=== PATIENT | female | born 1930 | race Hispanic/Latino ===

== ENCOUNTER 2018-07-05 12:59 | Inpatient (IN) | payer MEDICARE, OTHER ==
[2018-07-05 15:09] LABS: VENOUS BLOOD GAS BASE EXCESS -4.5 mmol/L (0.0-2.0); VENOUS BLOOD GAS PO2 31 mm/Hg (30-55); VENOUS BLOOD PH 7.33 (7.32-7.43)
--- NOTE | 2018-07-05 15:10 | ED PDOC ---
Arrival/HPI - General Chief Complaint: Weakness/Neurological Deficit Time Seen by Provider: 07/05/18 13:44 Historian: Patient, Family - History of Present Illness Narrative History of Present Illness (Text): 07/05/18 14:08 87 year old female, whose past medical history includes diabetes, parathyroidectomy (removal of goiter), and family history of Pancreatic cancer noted, who presents to the emergency department complaining of thirst and generalized weakness for the psat 2 weeks. Patient reports she went to see Dr. Palafox on 06/21/2018 for evaluation of her constipation for 2 weeks prior to her visit there. Son at bedside states pt was put onto medication for her constipation, with significant relief. Patient states she had very shallow breathing last night. Pt states Dr. Palafox prescribed her Magnesium Nitrate. Patient denies ever doing enema. Patient states she weighed 166 pounds on 06/04/2018, and when she was checked again 2 weeks later she had gained 20 pounds. Pt notes her constipation is gone. Patient notes abdominal bloating, fatigue, and vomiting. Patient notes her last bowel movement was yesterday, due to the medication. Patient notes she did get her flu shot. Patient denies any fevers, chest pain, nausea, constipation, back pain, neck pain, urinary symptoms, headache, dizziness, or any other complaint. PMD: Dr. Palafox [facility] at bedside notes that patient can only take Aspirin since she is allergic to all medications due to result of vomiting. Time/Duration: < week (Pt notes onset as 2 weeks ago) Symptom Onset: Sudden Symptom Course: Unchanged Activities at Onset: Light Past Medical History - Provider Review Nursing Documentation Reviewed: Yes - Endocrine/Metabolic Hx Diabetes Mellitus Type 1: Yes Hx Hypothyroidism: Yes - Psychiatric Hx Substance Use: No - Surgical History Hx Parathyroidectomy: Yes Other/Comment: removal of goiter - Anesthesia Hx Anesthesia: Yes Hx Anesthesia Reactions: No Hx Malignant Hyperthermia: No Family/Social History - Physician Review Nursing Documentation Reviewed: Yes Family/Social History: Other (Family history of Pancreatic cancer noted) Smoking Status: Never Smoked Hx Alcohol Use: No Hx Substance Use: No Allergies/Home Meds Allergies/Adverse Reactions: Allergies acetaminophen [From Tylenol] Allergy (Verified 07/05/18 13:49) ANAPHYLAXIS hydromorphone [From Dilaudid] Allergy (Verified 07/05/18 13:48) ANAPHYLAXIS morphine Allergy (Verified 07/05/18 13:48) NAUSEA NSAIDS (Non-Steroidal Anti-Inflamma Allergy (Verified 07/05/18 13:48) ANAPHYLAXIS Home Medications: Home Meds Medication Instructions Recorded Confirmed SITagliptin [Januvia] 25 mg PO DAILY 07/06/18 07/06/18 Thyroid [[place] Thyroid] 60 mg PO DAILY 07/06/18 07/06/18 Review of Systems - Physician Review All systems were reviewed & negative as marked: Yes - Review of Systems Constitutional: Fatigue, Other (Patient notes thirst). absent: Normal, Fevers Cardiovascular: Normal. absent: Chest Pain Gastrointestinal: Vomiting, Other (Patient notes abdominal bloating ). absent: Normal, Constipation, Nausea Genitourinary Female: Normal. absent: Urine Output Changes Musculoskeletal: Normal. absent: Back Pain, Neck Pain Neurological: Normal. absent: Headache, Dizziness Physical Exam Vital Signs Reviewed: Yes Vital Signs Temp Pulse Resp BP Pulse Ox 07/05/18 14:27 98.1 F 125 H 18 134/60 96 07/05/18 13:01 97.4 F L 124 H 18 119/58 L 95 Temperature: Afebrile Blood Pressure: Hypertensive Pulse: Tachycardic Respiratory Rate: Normal Appearance: Positive for: Well-Appearing, Non-Toxic, Comfortable Pain Distress: None Mental Status: Positive for: Alert and Oriented X 3 - Systems Exam Head: Present: Atraumatic, Normocephalic Pupils: Present: PERRL Extroacular Muscles: Present: EOMI Conjunctiva: Present: Normal Mouth: Present: Dry Neck: Present: Normal Range of Motion Respiratory/Chest: Present: Clear to Auscultation, Good Air Exchange, Decreased Breath Sounds (decreased breath sounds bilaterally, body habitus ). No: Wheezes Cardiovascular: Present: Tachycardic Abdomen: Present: Distention (distended abdomen). No: Tenderness, Peritoneal Signs Back: Present: Normal Inspection Upper Extremity: Present: Normal Inspection. No: Cyanosis, Edema Lower Extremity: Present: Edema (+1 pitting edema b/l) Neurological: Present: GCS=15, Speech Normal Skin: Present: Warm, Dry, Normal Color. No: Rashes Psychiatric: Present: Alert, Oriented x 3, Normal Insight, Normal Concentration Medical Decision Making ED Course and Treatment: 07/05/18 14:08 Impression: 87 year old female who presents to the emergency department for thirst and gener alized weakness for the past 2 weeks. Differential Diagnosis included but are not limited to: --CHF (new onset) --PNA --Arrhythmia Plan: -- Labs --CXR --IVF --Rocephin --Azithromycin --Lasix -- CT of Abdomen/Pelvis (IV contrast only) -- EKG -- X-Ray of chest -- Urine culture -- Influenza A B -- Urinalysis -- Reassess and disposition Progress Notes: 07/05/18 15:42 VBG shows elevated lactate of 5.2. HR noted to be sinus tachycardia to 135 with evidence of P waves seen on monitor strip. CXR shows vascular congestion, cardiomegaly as well as consolidation worrisome for PNA. Labs pending. 07/06/18 16:15 Labs reviewed with leukocytosis of 11, elevated potassium of 5.2(with no EKG changes) and hyponatremia. BNP elevated. HR sinus tachycardia to 120s despite fluids. Patient will be started on antibiotics for CAP as well as call placed to Dr. Palafox(PCP). 07/06/18 16:[address] Palafox who accepts patient onto her service. - Lab Interpretations Lab Results: 07/05/18 14:50 07/05/18 14:50 Lab Results 07/05/18 15:25: Influenza Typ A,B (EIA) Negative for flu a/b 07/05/18 15:00: pO2 31, VBG pH 7.33, VBG pCO2 40.0, VBG HCO3 21.1, VBG Total CO2 22.3, VBG O2 Sat (Calc) 61.3, VBG Base Excess -4.5 L, VBG Potassium 5.0, Glucose 114 H, Lactate 5.0 H*, FiO2 21.0, Crit Value Called To Fabiola dupree, Crit Value Called By Js, Blood Gas Notified Time 1510, Sodium 130.0 L, Chloride 98.0, Venous Blood Potassium 5.0 07/05/18 14:50: PT 31.3 H, INR 2.82, APTT 32.2 07/05/18 14:50: Sodium 133, Potassium 5.2 H, Chloride 99, Carbon Dioxide 22, Anion Gap 17, BUN 25 H, Creatinine 0.8, Est GFR ( Amer) > 60, Est GFR (Non-Af Amer) > 60, Random Glucose 116 H, Calcium 9.4, Magnesium 2.0, Total Bilirubin 6.6 H, AST 524 H, ALT 359 H, Alkaline Phosphatase 234 H, Troponin I 0.02, NT-Pro-B Natriuret Pep 1150 H, Total Protein 7.0, Albumin 3.6, Globulin 3.4, Albumin/Globulin Ratio 1.1, Lipase 318 H 07/05/18 14:50: WBC 11.3 H, RBC 4.86, Hgb 11.7 L, Hct 38.7, MCV 79.6 L, MCH 24.1 L, MCHC 30.2 L, RDW 15.7 H, Plt Count 328, MPV 9.8, Neut % (Auto) 74.2 H, Lymph % (Auto) 12.6 L, [place] % (Auto) 13.2 H, Eos % (Auto) 0.0 L, Baso % (Auto) 0.0, Lymph # (Auto) 1.4, [place] # (Auto) 1.5 H, Eos # (Auto) 0.0, Baso # (Auto) 0.00, Absolute Neuts (auto) 8.35 H I have reviewed the lab results: Yes - RAD Interpretation Narrative RAD Interpretations (Text): X-Ray of chest reviewed by radiologist, shows: Dictated By: Ron Sherwood Dictated Date/Time: 07/05/18 15:30 Impression: Poor inspiration with low lung volumes, crowded bronchovascular markings and mild bibasilar atelectasis. Central pulmonary vasculature is also increased possibly due to low lung volumes however mild chronic compensated pulmonary venous congestive changes not excluded. Clinical correlation recommend ed. Radiology Orders: 07/05/18 14:14 CHEST PORTABLE [RAD] Stat 07/05/18 14:41 ABDOMEN & PELVIS [ABD & PELVIS IV CONTRAST ONLY] [CT] Stat Dipper Operator: Radiologist - EKG Interpretation EKG Interpretation (Text): 07/05/18 14:06:12 EKG: Ordered, reviewed, and independently interpreted the EKG. Rate : 133 BPM Rhythm : Sinus Tachycardia. Interpretation : Low voltage. Visible P waves intermittently. No peaked T-waves. Interpreted by ED Physician: Yes Type: 12 lead EKG - Scribe Statement The provider has reviewed the documentation as recorded by the Scribe Thelma Paulson All medical record entries made by the Scribe were at my direction and personally dictated by me. I have reviewed the chart and agree that the record accurately reflects my personal performance of the history, physical exam, medical decision making, and the department course for this patient. I have also personally directed, reviewed, and agree with the discharge instructions and disposition. Disposition/Present on Arrival - Present on Arrival Any Indicators Present on Arrival: No History of DVT/PE: No History of Uncontrolled Diabetes: No Urinary Catheter: No History of Decub. Ulcer: No History Surgical Site Infection Following: None - Disposition Have Diagnosis and Disposition been Completed?: Yes Diagnosis: CHF (congestive heart failure), Atrial arrhythmia Disposition: HOSPITALIZED Disposition Time: 16:13 Patient Plan: Admission Patient Problems: Current Active Problems Problem Status Onset Atrial arrhythmia Acute CHF (congestive heart failure) Acute Condition: GUARDED
[2018-07-05] MEDS ORDERED: Sodium Chloride 0.9% 1,000 ML IV STA (15:15)
[2018-07-05 15:25] LABS: HEMOGLOBIN 11.7 g/dL (12.0-16.0); LYMPH # 1.4 (1.2-3.4); LYMPH % 12.6 % (22.0-35.0); MEAN CELL VOLUME 79.6 fl (80.0-105.0); MEAN CORPUSCULAR HEMOGLOBIN 24.1 pg (25.0-35.0); MEAN CORPUSCULAR HGB CONC 30.2 g/dl (31.0-37.0); MEAN PLATELET VOLUME 9.8 fl (7.0-11.0); MONO # 1.5 (0.1-0.6); MONO % 13.2 % (1.0-6.0); RBC 4.86 10^6/uL (3.5-6.1); RED CELL DISTRIBUTION WIDTH 15.7 % (11.5-14.5); WHITE BLOOD COUNT 11.3 10^3/uL (4.5-11.0)
[2018-07-05 15:31] LABS: ALB/GLOB RATIO 1.1 (1.1-1.8); ALBUMIN 3.6 g/dL (3.0-4.8); ALT/SGPT 359 U/L (7-56); AST/SGOT 524 U/L (14-36); BLOOD UREA NITROGEN 25 mg/dL (7-21); CALCIUM 9.4 mg/dL (8.4-10.5); GFR NON-AFRICAN AMERICAN > 60; LIPASE 318 U/L (23-300)
--- NOTE | 2018-07-05 15:33 | RAD ---
Date of service: 07/05/2018 HISTORY: weakness COMPARISON: No prior. FINDINGS: LUNGS: Poor inspiration with low lung volumes, crowded bronchovascular markings and mild bibasilar atelectasis. Central pulmonary vasculature is also increased possibly due to low lung volumes however mild chronic compensated pulmonary venous congestive changes not excluded. Clinical correlation recommended. PLEURA: No significant pleural effusion identified, no pneumothorax apparent. CARDIOVASCULAR: Mild moderate aortic atherosclerotic calcification present. Marked cardiomegaly. OSSEOUS STRUCTURES: No significant abnormalities. VISUALIZED UPPER ABDOMEN: Normal. OTHER FINDINGS: None. IMPRESSION: Poor inspiration with low lung volumes, crowded bronchovascular markings and mild bibasilar atelectasis. Central pulmonary vasculature is also increased possibly due to low lung volumes however mild chronic compensated pulmonary venous congestive changes not excluded. Clinical correlation recommended.
[2018-07-05 15:38] LABS: INR 2.82; PARTIAL THROMBOPLASTIN TIME 32.2 Seconds (26.9-38.3); PROTHROMBIN TIME 31.3 SECONDS (9.4-12.5)
[2018-07-05 15:43] LABS: B-TYPE NATRIURETIC PEPTIDE 1150 pg/mL (0-450); TROPONIN I 0.02 ng/mL
[2018-07-05] MEDS ORDERED: Albuterol 0.083% Inhal Sol (2.5 mg/3 mL) UD INH STA (15:49)
[2018-07-05] MEDS ORDERED: Dextrose 25% Inj (10ml) IV ONE (15:49)
[2018-07-05] MEDS ORDERED: Sodium Bicarbonate (8.4%) 50 Meq Syringe IVP ONE ×2 (15:49→17:15)
[2018-07-05] MEDS ORDERED: cefTRIAXone 1 gm 1 GM/100 ML BAG IVPB STA (15:50)
[2018-07-05] MEDS ORDERED: Azithromycin 500MG/NS 250ml 500 MG/250 ML BAG IVPB STA (15:50)
--- NOTE | 2018-07-05 16:35 | CARD ---
APPROVED REPORT Date of service: 07/05/2018 EKG Measurement Heart [id number] <Conclusion> A fib RVR Low voltage QRS Septal infarct, age undetermined Abnormal ECG
[2018-07-05] MEDS ORDERED: Iohexol 350 MG/100 ML VIAL ONE (16:46)
--- NOTE | 2018-07-05 17:57 | CT ---
Date of service: 07/05/2018 PROCEDURE: CT Abdomen and Pelvis with contrast HISTORY: constipation x 2 weeks r/o obstruction COMPARISON: None available. TECHNIQUE: Contrast dose: 100 mL Omnipaque 350 Radiation dose: Total exam DLP = 1017.56 mGy-cm. This CT exam was performed using one or more of the following dose reduction techniques: Automated exposure control, adjustment of the mA and/or kV according to patient size, and/or use of iterative reconstruction technique. FINDINGS: LOWER THORAX: Moderate bilateral pleural effusions. Bibasilar atelectasis. No visible pneumothorax. Partially imaged cardiomegaly. LIVER: Hypoattenuation of the liver compatible with hepatic steatosis. GALLBLADDER AND BILE DUCTS: Cholecystectomy. PANCREAS: Atrophic. SPLEEN: Unremarkable. ADRENALS: Unremarkable. KIDNEYS AND URETERS: Bilateral diminutive kidneys. The kidneys enhance symmetrically. No hydronephrosis or obstructing calculus identified. 1.2 cm left renal cyst. VASCULATURE: No aortic aneurysm. Dense aortic atherosclerotic calcifications/mural plaque. BOWEL: Stomach is nondistended. Lack of oral contrast limits evaluation for bowel pathology. Bowel loops appear within normal limits of caliber without evidence of obstruction. APPENDIX: Appendix is not identified PERITONEUM: Small abdominal and pelvic ascites. No definite free air. LYMPH NODES: No bulky adenopathy identified. BLADDER: Thick-walled under distended urinary bladder with associated inflammatory changes; correlate clinically for cystitis. REPRODUCTIVE: Diminutive/atrophic uterus. 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 Dilated left gonadal vein. BONES: Osseous demineralization. Multilevel degenerative changes. Scoliosis. OTHER FINDINGS: None. IMPRESSION: Diminutive/atrophic uterus. 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 Dilated left gonadal vein. Thick-walled under distended urinary bladder with associated inflammatory changes; correlate clinically for cystitis. Small abdominal and pelvic ascites. Moderate bilateral pleural effusions. Bibasilar atelectasis. Partially imaged cardiomegaly. Additional findings as above.
[2018-07-05] MEDS ORDERED: Albuterol-Ipratrop 3 mg / 0.5 (3 ml) UD IH PRN (19:26)
[2018-07-05 19:41] LABS: VENOUS BLOOD GAS BASE EXCESS -7.3 mmol/L (0.0-2.0); VENOUS BLOOD GAS PO2 36 mm/Hg (30-55); VENOUS BLOOD PH 7.27 (7.32-7.43)
[2018-07-05] MEDS: Albuterol-Ipratrop 3 mg / 0.5 (3 ml) UD IH SCH (20:18)
--- NOTE | 2018-07-05 21:57 | CP.PCM.PN ---
<JacquesJaron - Last Filed: 07/05/18 21:50> Subjective - Date & Time of Evaluation Date of Evaluation: 07/05/18 Time of Evaluation: 21:50 - Subjective Subjective: PGY1 Note for House Doc S - Paged about afib with RVR (HR 133) on 12-lead ekg (Afib confirmed by me) O - Repeat vital signs: HR 120, Temp 98.4, BP 134/70, RR 20, SaO2 98% room air - Patient does not have any chest pain or sob. Not diaphoretic on exam, she appears stable. - She does not endorse any abnormal hx of afib or rhythm abnormalities. A - new onset afib? (no prior records) P - D/w Dr. Palafox that patient will be started on lovenox 1 mg/kg sc BID, cardizem 5mg IVP - trend trops - also ordered TSH - cardio already on consult - Given leukocytosis, tachycardia, and trending up lactate (5 to 6), blood cx x2 ordered and procal level - will continue to monitor patient Objective - Vital Signs/Intake and Output Vital Signs (last 24 hours): Temp Pulse Resp BP Pulse Ox 98.1 F 125 H 18 137/100 H 96 07/05/18 14:27 07/05/18 14:27 07/05/18 14:27 07/05/18 16:30 07/05/18 14:27 - Medications Medications: Current Medications Acetaminophen (Tylenol 325mg Tab) 650 mg PO Q6H PRN PRN Reason: Fever >100.4 F Albuterol/Ipratropium (Duoneb 3 Mg/0.5 Mg (3 Ml) Ud) 3 ml IH Q2H PRN PRN Reason: Shortness of Breath Albuterol/Ipratropium (Duoneb 3 Mg/0.5 Mg (3 Ml) Ud) 3 ml IH [id number] AMADOU Last Admin: 07/05/18 20:18 Dose: 3 ml Enoxaparin Sodium (Lovenox) 80 mg SC Q12H AMADOU; Protocol Furosemide (Lasix) 40 mg IVP DAILY AMADOU Ceftriaxone Sodium (Rocephin 1 Gram Ivpb) 1 gm in 100 mls @ 100 mls/hr IVPB DAILY AMADOU; Protocol Azithromycin (Zithromax 500mg In Ns) 500 mg in 250 mls @ 167 mls/hr IVPB DAILY AMADOU; Protocol Ondansetron HCl (Zofran Inj) 4 mg IVP Q6H PRN PRN Reason: Nausea/Vomiting Pantoprazole Sodium (Protonix Ec Tab) 40 mg PO 0630 AMADOU - Labs Labs: 07/05/18 14:50 07/05/18 14:50 PT 31.3 SECONDS (9.4-12.5) H 07/05/18 14:50 INR 2.82 07/05/18 14:50 APTT 32.2 Seconds (26.9-38.3) 07/05/18 14:50 <Andrew Conn - Last Filed: 07/05/18 22:43> Objective - Vital Signs/Intake and Output Vital Signs (last 24 hours): Temp Pulse Resp BP Pulse Ox 98.1 F 125 H 18 137/100 H 96 07/05/18 14:27 07/05/18 14:27 07/05/18 14:27 07/05/18 16:30 07/05/18 14:27 - Medications Medications: Current Medications Acetaminophen (Tylenol 325mg Tab) 650 mg PO Q6H PRN PRN Reason: Fever >100.4 F Albuterol/Ipratropium (Duoneb 3 Mg/0.5 Mg (3 Ml) Ud) 3 ml IH Q2H PRN PRN Reason: Shortness of Breath Albuterol/Ipratropium (Duoneb 3 Mg/0.5 Mg (3 Ml) Ud) 3 ml IH [id number] AMADOU Last Admin: 07/05/18 20:18 Dose: 3 ml Enoxaparin Sodium (Lovenox) 80 mg SC Q12H AMADOU; Protocol Furosemide (Lasix) 40 mg IVP DAILY AMADOU Ceftriaxone Sodium (Rocephin 1 Gram Ivpb) 1 gm in 100 mls @ 100 mls/hr IVPB DAILY AMADOU; Protocol Azithromycin (Zithromax 500mg In Ns) 500 mg in 250 mls @ 167 mls/hr IVPB DAILY AMADOU; Protocol Ondansetron HCl (Zofran Inj) 4 mg IVP Q6H PRN PRN Reason: Nausea/Vomiting Pantoprazole Sodium (Protonix Ec Tab) 40 mg PO 0630 AMADOU - Labs Labs: 07/05/18 14:50 07/05/18 14:50 PT 31.3 SECONDS (9.4-12.5) H 07/05/18 14:50 INR 2.82 07/05/18 14:50 APTT 32.2 Seconds (26.9-38.3) 07/05/18 14:50 Attending/Attestation - Attestation I have personally seen and examined this patient.: Yes I have fully participated in the care of the patient.: Yes I have reviewed all pertinent clinical information, including history, physical exam and plan: Yes Notes (Text): 07/05/18 22:41 Patient was seen at bedside. Has no acute symptoms now. Denies chest pain, sob, palpitation, nausea, sweating. 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 Medical record was reviewed. Agree with medical microbiologist's note. Will also order mag,phos now, EKG in AM.
[2018-07-05 22:31] LABS: TROPONIN I 0.02 ng/mL
[2018-07-05] MEDS: Enoxaparin 80 mg Syringe SC SCH (22:39)
[2018-07-05 22:45] LABS: FREE T4 0.73 ng/dL (0.78-2.19)
[2018-07-05] MEDS ORDERED: diltiaZEM IVPB 100mg in NS 100 ML IV SCH (23:30)
[2018-07-06] MEDS ORDERED: Insulin Lispro (humaLOG) MEDIUM Coverage SC ONE (00:45)
[2018-07-06] MEDS: Albuterol-Ipratrop 3 mg / 0.5 (3 ml) UD IH SCH ×4 (01:00→20:50)
[2018-07-06 01:33] LABS: VENOUS BLOOD GAS BASE EXCESS -7.1 mmol/L (0.0-2.0); VENOUS BLOOD GAS PO2 24 mm/Hg (30-55); VENOUS BLOOD PH 7.28 (7.32-7.43)
--- NOTE | 2018-07-06 01:37 | HP ---
DATE OF EXAM: 07/05/2018 HISTORY OF PRESENT ILLNESS: The patient is an 87-year-old, known to me because I took care of her brother who recently of pancreatic cancer. I only saw the patient 2 weeks ago first time because of her constipation, she was constipated for 7 days, I gave her dose of Linzess and MiraLax with some relief. Since then, I have not seen the patient; however, she was brought in by family because of generalized weakness and increasing thirst. The patient does have some abdominal discomfort, fatigue, feels nauseous at times, decreased appetite. Denies any fever or chills. No history of nausea and her constipation has also relieved. PAST MEDICAL HISTORY: Significant for: 1. Uxp-meqbhny-jvxqigwtp diabetes. 2. History of parathyroidectomy. 3. History of goiter surgery. ALLERGIES: THE PATIENT IS ALLERGIC TO TYLENOL, HYDROMORPHONE, AND MORPHINE. HOME MEDICATIONS: She was recently prescribed Linzess and MiraLax. SOCIAL HISTORY: Denies smoking, drinking or alcohol use. PHYSICAL EXAMINATION GENERAL: The patient is awake, alert and oriented, able to communicate. VITAL SIGNS: The patient is afebrile, pulse 125, respirations 18, and blood pressure 137/100. LUNGS: Bilateral decreased breath sounds. HEART: S1 and S2 audible. ABDOMEN: Soft and obese. Nontender. No rebound. No guarding. NEUROLOGIC: The patient is awake, alert, oriented, able to communicate. EXTREMITIES: Bilateral legs, +1 edema. LABORATORY EXAM: WBC 11.2, hemoglobin 11.7, hematocrit 38.7, and platelet of 328. Chemistry; sodium 133, potassium 5.2, chloride 99, CO2 of 22, BUN 25, creatinine 0.8, blood sugar 116. Total bili 6.6. AST 524, ALT 359 and alk phosphatase . Flu test is negative. ASSESSMENT AND PLAN: 1. Generalized weakness. 2. Rule out community-acquired pneumonia. 3. Abnormal liver function tests, rule out right heart failure. PLAN: We will request Dr. Muhammad for consult and Dr. Phan for consult. Order for abdominal sonogram. We will order for CT of the chest. We will follow up electrolytes and start on IV antibiotics. Corey Palafox MD [facility] # [id number]
[2018-07-06 06:12] LABS: BASO # 0.02 K/mm3 (0.0-2.0); BASO % 0.1 % (0.0-3.0); EOS % 0.2 % (1.5-5.0); HEMOGLOBIN 11.7 g/dL (12.0-16.0); LYMPH # 2.2 (1.2-3.4); LYMPH % 15.7 % (22.0-35.0); MEAN CELL VOLUME 80.6 fl (80.0-105.0); MEAN CORPUSCULAR HEMOGLOBIN 24.7 pg (25.0-35.0); MEAN CORPUSCULAR HGB CONC 30.6 g/dl (31.0-37.0); MEAN PLATELET VOLUME 9.8 fl (7.0-11.0); MONO # 2.1 (0.1-0.6); MONO % 15.4 % (1.0-6.0); RED CELL DISTRIBUTION WIDTH 16.1 % (11.5-14.5)
[2018-07-06 06:35] LABS: LDL CHOLESTEROL 72 mg/dL (0-129); TROPONIN I 0.03 ng/mL
[2018-07-06 06:40] LABS: FREE T4 0.77 ng/dL (0.78-2.19)
[2018-07-06 06:45] LABS: ALBUMIN 3.3 g/dL (3.0-4.8); ALT/SGPT 337 U/L (7-56); AST/SGOT 461 U/L (14-36); BLOOD UREA NITROGEN 31 mg/dL (7-21); CALCIUM 8.9 mg/dL (8.4-10.5); GFR NON-AFRICAN AMERICAN 59; HDL CHOLESTEROL 34 mg/dL (29-60); LIPASE 339 U/L (23-300)
[2018-07-06 06:47] LABS: VENOUS BLOOD GAS BASE EXCESS -6.1 mmol/L (0.0-2.0); VENOUS BLOOD GAS PO2 222 mm/Hg (30-55); VENOUS BLOOD PH 7.34 (7.32-7.43)
[2018-07-06] MEDS: Pantoprazole 40 mg EC Tab PO SCH (06:54)
[2018-07-06 07:03] LABS: RBC 4.74 10^6/uL (3.5-6.1); WHITE BLOOD COUNT 13.8 10^3/uL (4.5-11.0)
[2018-07-06] MEDS ORDERED: Insulin Lispro (humaLOG) MEDIUM Coverage SC SCH (07:30)
[2018-07-06] MEDS: Insulin Lispro (humaLOG) MEDIUM Coverage SC SCH ×4 (07:48→22:12)
[2018-07-06] MEDS ORDERED: diltiaZEM IVPB 100mg in NS 100 ML IV SCH (08:23)
[2018-07-06] MEDS ORDERED: Digoxin 500 mcg/2ml (0.5 mg/2ml) Inj IVP ONE (09:34)
[2018-07-06] MEDS ORDERED: Enoxaparin 30 mg Syringe SC SCH (10:00)
--- NOTE | 2018-07-06 10:46 | CARD ---
APPROVED REPORT Date of service: 07/06/2018 EKG Measurement Heart [id number] <Conclusion> Atrial fibrillation with rapid ventricular response with premature ventricular or aberrantly conducted complexes Low voltage QRS Abnormal ECG
--- NOTE | 2018-07-06 11:08 | CP.PCM.CON ---
History of Present Illness - History of Present Illness History of Present Illness: GI Consult for Dr. Muhammad Reason for Consultation: Elevated LFTs Patient is an 87 yo F with PMH of NIDDM [place] [facility] [place] for the past 2 weeks. Patient also reported shortness of breath a day prior to admission and a 20 lbs weight gain over the last month. Patient was recently treated for a 3 week history of constipation by Dr. Palafox with Miralax and Linzess. GI was consulted due to elevated LFTs. Patient states that her shortness of breath has improved with medical therapy over the last day. Of note , patient developed new onset atrial fibrillation during hospital course and is now on rate control and anticoagulation. Patient denies CP, SOB, n/v/d, abdominal pain, fever, chills, AGUSTIN, dizziness, melena, hematochezia, and dysuria. PMH: NIDDM Surg: Parathyroidectomy, goiter surgery, cholecystectomy All: Tylenol, hydromorphone, morphine, NSAIDs SH: Denied tobacco, EtOH, and illicit drug use FHx: Pancreatic CA Medications reviewed as per [facility] Review of Systems - Review of Systems All systems: reviewed and no additional remarkable complaints except (12 point ROS reviewed and is negative other than what is stated in HPI.) Past Patient History - Past Social History Smoking Status: Never Smoked - CARDIAC Hx Cardiac Disorders: No - PULMONARY Hx Respiratory Disorders: No - NEUROLOGICAL Hx Neurological Disorder: No - HEENT Hx HEENT Problems: Yes Hx Cataracts: Yes (cataract sx ou) - RENAL Hx Chronic Kidney Disease: No - ENDOCRINE/METABOLIC Hx Endocrine Disorders: Yes Hx Diabetes Mellitus Type 1: Yes Hx Hypothyroidism: Yes - HEMATOLOGICAL/ONCOLOGICAL Hx Blood Disorders: No - INTEGUMENTARY Hx Dermatological Problems: No - MUSCULOSKELETAL/RHEUMATOLOGICAL Hx Falls: No - GASTROINTESTINAL Hx Gastrointestinal Disorders: No - GENITOURINARY/GYNECOLOGICAL Hx Genitourinary Disorders: No - PSYCHIATRIC Hx Substance Use: No - SURGICAL HISTORY Hx Surgeries: Yes Hx Cholecystectomy: Yes Other/Comment: removal of goiter, removal of R ovary & fallopian tube - ANESTHESIA Hx Anesthesia: Yes Hx Anesthesia Reactions: No Hx Malignant Hyperthermia: No Meds Allergies/Adverse Reactions: Allergies Allergy/AdvReac Type Severity Reaction Status Date / Time acetaminophen [From Tylenol] Allergy ANAPHYLAXIS Verified 07/05/18 13:49 hydromorphone [From Dilaudid] Allergy ANAPHYLAXIS Verified 07/05/18 13:48 morphine Allergy NAUSEA Verified 07/05/18 13:48 NSAIDS (Non-Steroidal Allergy ANAPHYLAXIS Verified 07/05/18 13:48 Anti-Inflamma - Medications Medications: Current Medications Albuterol/Ipratropium (Duoneb 3 Mg/0.5 Mg (3 Ml) Ud) 3 ml IH Q2H PRN PRN Reason: Shortness of Breath Albuterol/Ipratropium (Duoneb 3 Mg/0.5 Mg (3 Ml) Ud) 3 ml IH [id number] [facility] Last Admin: 07/06/18 07:23 Dose: 3 ml Diltiazem HCl (Cardizem) 60 mg PO TID AMADOU Enoxaparin Sodium (Lovenox) 80 mg SC Q12H [facility]; Protocol Last Admin: 07/05/18 22:39 Dose: 80 mg Furosemide (Lasix) 40 mg IVP DAILY AMADOU Ceftriaxone Sodium (Rocephin 1 Gram Ivpb) 1 gm in 100 mls @ 100 mls/hr IVPB DAILY [facility]; Protocol Stop: 07/10/18 10:59 Azithromycin (Zithromax 500mg In Ns) 500 mg in 250 mls @ 167 mls/hr IVPB DAILY [facility]; Protocol diltiaZEM IVPB 100mg in NS (Cardizem 100mg In Ns) 100 mls @ 10 mls/hr IV .Q10H [facility] Last Admin: 07/06/18 09:11 Dose: 10 mls/hr Insulin Human Lispro (Humalog Med) 0 units SC ACHS [facility]; Protocol Last Admin: 07/06/18 07:48 Dose: Not Given Ondansetron HCl (Zofran Inj) 4 mg IVP Q6H PRN PRN Reason: Nausea/Vomiting Pantoprazole Sodium (Protonix Ec Tab) 40 mg PO 0630 [facility] Last Admin: 07/06/18 06:54 Dose: 40 mg Physical Exam - Constitutional Appears: No Acute Distress - Head Exam Head Exam: NORMAL INSPECTION - Eye Exam Eye Exam: EOMI, Normal appearance, PERRL - ENT Exam ENT Exam: Mucous Membranes Moist, Normal Exam - Neck Exam Neck exam: Positive for: Normal Inspection - Respiratory Exam Respiratory Exam: Decreased Breath Sounds (at bases). absent: Rales, Rhonchi, Wheezes - Cardiovascular Exam Cardiovascular Exam: Irregular Rhythm, +S1, +S2. absent: Tachycardia, Gallop, Rubs - GI/Abdominal Exam GI & Abdominal Exam: Soft. absent: Distended, Guarding, Rebound, Tenderness - Extremities Exam Extremities exam: Positive for: pedal edema (1+ b/l) - Neurological Exam Neurological exam: Alert, Oriented x3 - Skin Skin Exam: Normal Color, Warm Results - Vital Signs Recent Vital Signs: Last Vital Signs Temp 97.3 F L 07/06/18 06:00 Pulse 112 H 07/06/18 06:00 Resp 20 07/06/18 06:00 BP 114/55 L 07/06/18 06:00 Pulse Ox 95 07/05/18 20:01 - Labs Result Diagrams: 07/06/18 05:55 07/06/18 05:55 Labs: Laboratory Results - last 24 hr 07/05/18 07/05/18 07/05/18 14:50 14:50 14:50 WBC 11.3 H RBC 4.86 Hgb 11.7 L Hct 38.7 MCV 79.6 L MCH 24.1 L MCHC 30.2 L RDW 15.7 H Plt Count 328 MPV 9.8 Neut % (Auto) 74.2 H Lymph % (Auto) 12.6 L Osborne % (Auto) 13.2 H Eos % (Auto) 0.0 L Baso % (Auto) 0.0 Lymph # (Auto) 1.4 Osborne # (Auto) 1.5 H Eos # (Auto) 0.0 Baso # (Auto) 0.00 Absolute Neuts (auto) 8.35 H PT 31.3 H INR 2.82 APTT 32.2 pO2 VBG pH VBG pCO2 VBG HCO3 VBG Total CO2 VBG O2 Sat (Calc) VBG Base Excess VBG Potassium Glucose Lactate FiO2 Crit Value Called To Crit Value Called By Blood Gas Notified Time Sodium 133 Potassium 5.2 H Chloride 99 Carbon Dioxide 22 Anion Gap 17 BUN 25 H Creatinine 0.8 Est GFR ( Amer) > 60 Est GFR (Non-Af Amer) > 60 Random Glucose 116 H Calcium 9.4 Phosphorus Magnesium 2.0 Total Bilirubin 6.6 H AST 524 H ALT 359 H Alkaline Phosphatase 234 H Troponin I 0.02 NT-Pro-B Natriuret Pep 1150 H Total Protein 7.0 Albumin 3.6 Globulin 3.4 Albumin/Globulin Ratio 1.1 Triglycerides Cholesterol LDL Cholesterol Direct HDL Cholesterol Lipase 318 H Free T4 TSH 3rd Generation Venous Blood Potassium Influenza Typ A,B (EIA) 07/05/18 07/05/18 07/05/18 15:00 15:25 19:00 WBC RBC Hgb Hct MCV MCH MCHC RDW Plt Count MPV Neut % (Auto) Lymph % (Auto) Osborne % (Auto) Eos % (Auto) Baso % (Auto) Lymph # (Auto) Osborne # (Auto) Eos # (Auto) Baso # (Auto) Absolute Neuts (auto) PT INR APTT pO2 31 36 VBG pH 7.33 7.27 L VBG pCO2 40.0 42.0 VBG HCO3 21.1 19.3 L VBG Total CO2 22.3 20.6 L VBG O2 Sat (Calc) 61.3 65.8 H VBG Base Excess -4.5 L -7.3 L VBG Potassium 5.0 5.2 Glucose 114 H 206 H Lactate 5.0 H* 6.0 H* FiO2 21.0 21.0 Crit Value Called To [id number] md Allison suáerz Crit Value Called By Jpatrice Atc Blood Gas Notified Time 1510 1940 Sodium 130.0 L 133.0 Potassium Chloride 98.0 97.0 L Carbon Dioxide Anion Gap BUN Creatinine Est GFR ( Amer) Est GFR (Non-Af Amer) Random Glucose Calcium Phosphorus Magnesium Total Bilirubin AST ALT Alkaline Phosphatase Troponin I NT-Pro-B Natriuret Pep Total Protein Albumin Globulin Albumin/Globulin Ratio Triglycerides Cholesterol LDL Cholesterol Direct HDL Cholesterol Lipase Free T4 TSH 3rd Generation Venous Blood Potassium 5.0 5.2 Influenza Typ A,B (EIA) Negative for flu a/b 07/05/18 07/05/18 07/06/18 21:30 22:09 01:15 WBC RBC Hgb Hct MCV MCH MCHC RDW Plt Count MPV Neut % (Auto) Lymph % (Auto) Osborne % (Auto) Eos % (Auto) Baso % (Auto) Lymph # (Auto) Osborne # (Auto) Eos # (Auto) Baso # (Auto) Absolute Neuts (auto) PT INR APTT pO2 24 L VBG pH 7.28 L VBG pCO2 41.0 VBG HCO3 19.3 L VBG Total CO2 20.6 L VBG O2 Sat (Calc) 35.8 L VBG Base Excess -7.1 L VBG Potassium 4.8 Glucose 199 H Lactate 6.4 H* FiO2 21.0 Crit Value Called To Amber yo rn 2rno Crit Value Called By [facility] Blood Gas Notified Time 133 Sodium 131.0 L Potassium Chloride 95.0 L Carbon Dioxide Anion Gap BUN Creatinine Est GFR ( Amer) Est GFR (Non-Af Amer) Random Glucose Calcium Phosphorus 4.4 Magnesium 1.9 Total Bilirubin AST ALT Alkaline Phosphatase Troponin I 0.02 NT-Pro-B Natriuret Pep Total Protein Albumin Globulin Albumin/Globulin Ratio Triglycerides Cholesterol LDL Cholesterol Direct HDL Cholesterol Lipase Free T4 0.73 L TSH 3rd Generation 4.37 Venous Blood Potassium 4.8 Influenza Typ A,B (EIA) 07/06/18 07/06/18 07/06/18 05:55 05:55 05:55 WBC 13.8 H D RBC 4.74 Hgb 11.7 L Hct 38.2 MCV 80.6 MCH 24.7 L MCHC 30.6 L RDW 16.1 H Plt Count 306 MPV 9.8 Neut % (Auto) 68.6 H Lymph % (Auto) 15.7 L Osborne % (Auto) 15.4 H Eos % (Auto) 0.2 L Baso % (Auto) 0.1 Lymph # (Auto) 2.2 Osborne # (Auto) 2.1 H Eos # (Auto) 0.0 Baso # (Auto) 0.02 Absolute Neuts (auto) 9.46 H PT INR APTT pO2 VBG pH VBG pCO2 VBG HCO3 VBG Total CO2 VBG O2 Sat (Calc) VBG Base Excess VBG Potassium Glucose Lactate FiO2 Crit Value Called To Crit Value Called By Blood Gas Notified Time Sodium 132 Potassium 5.0 Chloride 101 Carbon Dioxide 18 L Anion Gap 19 BUN 31 H Creatinine 0.9 Est GFR ( Amer) > 60 Est GFR (Non-Af Amer) 59 Random Glucose 124 H Calcium 8.9 Phosphorus Magnesium Total Bilirubin 6.0 H AST 461 H ALT 337 H Alkaline Phosphatase 205 H Troponin I 0.03 D NT-Pro-B Natriuret Pep Total Protein 6.5 Albumin 3.3 Globulin 3.2 Albumin/Globulin Ratio 1.0 L Triglycerides 77 Cholesterol 127 L LDL Cholesterol Direct 72 HDL Cholesterol 34 Lipase 339 H Free T4 0.77 L TSH 3rd Generation 5.36 H Venous Blood Potassium Influenza Typ A,B (EIA) 07/06/18 05:55 WBC RBC Hgb Hct MCV MCH MCHC RDW Plt Count MPV Neut % (Auto) Lymph % (Auto) Osborne % (Auto) Eos % (Auto) Baso % (Auto) Lymph # (Auto) Osborne # (Auto) Eos # (Auto) Baso # (Auto) Absolute Neuts (auto) PT INR APTT pO2 222 H VBG pH 7.34 VBG pCO2 35.0 L VBG HCO3 18.9 L VBG Total CO2 20.0 L VBG O2 Sat (Calc) 100.4 H VBG Base Excess -6.1 L VBG Potassium 4.9 Glucose 130 H Lactate 4.6 H* FiO2 21.0 Crit Value Called To Siddharth carrillo rn 2rno Crit Value Called By [facility] Blood Gas Notified Time 646 Sodium 128.0 L Potassium Chloride 98.0 Carbon Dioxide Anion Gap BUN Creatinine Est GFR ( Amer) Est GFR (Non-Af Amer) Random Glucose Calcium Phosphorus Magnesium Total Bilirubin AST ALT Alkaline Phosphatase Troponin I NT-Pro-B Natriuret Pep Total Protein Albumin Globulin Albumin/Globulin Ratio Triglycerides Cholesterol LDL Cholesterol Direct HDL Cholesterol Lipase Free T4 TSH 3rd Generation Venous Blood Potassium 4.9 Influenza Typ A,B (EIA) Assessment & Plan - Assessment and Plan (Free Text) Assessment: 87 year old female with a PMH of non-insulin dependent DM who [place] [facility] [place], weakness, constipation, and 20 lbs weight gain since 06/04/18. GI was consulted due to elevated LFT's. Liver enzymes have been downtrending with diuretics, which makes congestive hepatopathy 2/2 CHF more likely. 1. Elevated LFTs 2. New-onset atrial fibrillation 3. Probable CHF Plan: - CT abd/pelv shows bilateral pleural effuiosns, small ascites - CXR shows pulmonary venous congestion - F/u abdominal US, echo, and chest CT - A fib management per cardio - Further medical management per primary Patient discussed in detail with Dr. Muhammad. Tree Flores, DO PGY2
[2018-07-06] MEDS: Enoxaparin 80 mg Syringe SC SCH (11:20)
--- NOTE | 2018-07-06 11:42 | CARD ---
APPROVED REPORT Date of service: 07/06/2018 EXAM: Two-dimensional and M-mode echocardiogram with Doppler and color Doppler. INDICATION Atrial Fibrillation Congestive Heart Failure 2D DIMENSIONS Left Atrium (2D)4.6 (1.6-4.0cm)IVSd1.4 (0.7-1.1cm) LVDd4.5 (3.9-5.9cm)PWd1.0 (0.7-1.1cm) LVDs3.9 (2.5-4.0cm)FS (%) 14.8 % LVEF (%)31.6 (>50%) M-Mode DIMENSIONS Aortic Root2.70 (2.2-3.7cm)Aortic Cusp Exc.1.20 (1.5-2.0cm) Aortic Valve AoV Peak [id number]/Robert Peak GR.9mmHg Mitral Valve E/A ratio0.0 TDI E/Lateral E'0.0E/Medial E'0.0 Tricuspid Valve TR Peak [id number] [id number] Peak Gr.16mmHg [id number] LEFT VENTRICLE The left ventricle is normal size. Septal hypertrophy. The systolic function is moderately impaired.EF-30-35% There is moderate global hypokinesis of the left ventricle. Pt is in afib, diastolic Fx. could not be assessed No left ventricle thrombus noted on this study. There is no ventricular septal defect visualized. There is no left ventricular aneurysm. There is no mass noted in the left ventricle. RIGHT VENTRICLE The right ventricle is normal size. There is normal right ventricular wall thickness. The right ventricular systolic function is normal. ATRIA The left atrium is mildly dilated. The right atrium is mildly dilated. The interatrial septum is intact with no evidence for an atrial septal defect. AORTIC VALVE The aortic valve is calcified but opens well. There is mild aortic regurgitation. There is no aortic valvular stenosis. There is no aortic valvular vegetation. MITRAL VALVE The mitral valve is thickened but opens well. Mitral regurgitation is moderate. There is no mitral valve stenosis. There is no evidence of mitral valve prolapse. TRICUSPID VALVE The tricuspid valve leaflets are thickened , but open well. There is moderate tricuspid regurgitation. Measured RVSP-26 mmof Hg is extremely underestimating due to cofiguration of TR Jet. There is no tricuspid valve stenosis. There is no tricuspid valve prolapse or vegetation. PULMONIC VALVE The pulmonic valve is mildly thickened. There is trace pulmonic valvular regurgitation. There is no pulmonic valvular stenosis. GREAT VESSELS The aortic root is normal in size. The ascending aorta is normal in size. The pulmonary artery is normal. The IVC is dilated. PERICARDIAL EFFUSION There is no pleural effusion. There is no pericardial effusion. <Conclusion> The left ventricle is normal size. Septal hypertrophy. The systolic function is moderately impaired.EF-30-35%. Biatrial hypertrophy. There is mild aortic regurgitation. Mitral regurgitation is moderate. There is moderate tricuspid regurgitation. Measured RVSP-26 mmof Hg is extremely underestimating due to cofiguration of TR Jet. The IVC is dilated. There is no pericardial effusion.
--- NOTE | 2018-07-06 11:43 | CT ---
Date of service: 07/06/2018 PROCEDURE: CT Chest without contrast HISTORY: sob COMPARISON: None available. TECHNIQUE: Contiguous axial images were obtained through the chest without intravenous contrast enhancement. Sagittal and coronal reconstructions were performed. Radiation dose: Total exam DLP = 775.06 mGy-cm. This CT exam was performed using one or more of the following dose reduction techniques: Automated exposure control, adjustment of the mA and/or kV according to patient size, and/or use of iterative reconstruction technique. FINDINGS: LUNGS: Bilateral mosaic pattern to the lungs suggesting an element of air trapping. MEDIASTINUM: Unremarkable thoracic aorta. No aneurysm. Cardiomegaly. Main pulmonary artery unremarkable. No vascular congestion. No lymphadenopathy. Aortic calcifications. PLEURA: Bilateral pleural effusions, right greater than left. BONES: No fracture. No destructive lesion. UPPER ABDOMEN: Extensive ascites. Status post cholecystectomy. OTHER FINDINGS: None. IMPRESSION: Bilateral pleural effusions. Ascites. Cardiomegaly.
[2018-07-06] MEDS: cefTRIAXone 1 gm 1 GM/100 ML BAG IVPB SCH (12:14)
[2018-07-06] MEDS: Azithromycin 500MG/NS 250ml 500 MG/250 ML BAG IVPB SCH (12:14)
[2018-07-06 12:20] VITALS: PULSE 85
[2018-07-06 12:33] LABS: VENOUS BLOOD GAS BASE EXCESS -7.5 mmol/L (0.0-2.0); VENOUS BLOOD GAS PO2 37 mm/Hg (30-55); VENOUS BLOOD PH 7.28 (7.32-7.43)
--- NOTE | 2018-07-06 14:07 | US ---
Date of service: 07/06/2018 HISTORY: abdominal sonogram COMPARISON: None. TECHNIQUE: Sonographic evaluation of the abdomen. FINDINGS: LIVER: Measures 13.7 cm. Diffusely increased echogenicity of the liver parenchyma. Consistent with fatty infiltration or hepatocellular disease. Questionable nodular contour suggestive of hepatic cirrhosis. No biliary dilatation. Duplex Doppler interrogation of portal vein shows pulsatility. This may reflect right heart failure, hepatic cirrhosis or tricuspid regurgitation. Portal venous flow direction is difficult to determine on the basis of this examination. GALLBLADDER: Cholecystectomy COMMON BILE DUCT: Measures 3 mm. No stones. No dilatation. PANCREAS: Unremarkable as visualized. No mass. No ductal dilatation. RIGHT KIDNEY: Measures 11.4cm. Normal echogenicity. No calculus, mass, or hydronephrosis. LEFT KIDNEY: Measures 10.8cm. Normal echogenicity. No calculus or hydronephrosis. Mid renal cortical cyst, 1.6 cm. No solid mass. SPLEEN: Normal in size and contour. No mass. AORTA: No aneurysmal dilatation. IVC: Unremarkable. OTHER FINDINGS: Mild ascites. IMPRESSION: Ascites. Echogenic liver with nodular contour suggestive of hepatic cirrhosis. Correlate clinically. Status post cholecystectomy. No evidence of biliary obstruction. Incidental 1.6 cm left renal cortical cyst pulsatile flow in portal vein may reflect right heart failure, hepatic cirrhosis or tricuspid regurgitation.
[2018-07-06 16:37] LABS: VENOUS BLOOD GAS BASE EXCESS -13.3 mmol/L (0.0-2.0); VENOUS BLOOD GAS PO2 160 mm/Hg (30-55); VENOUS BLOOD PH 7.19 (7.32-7.43)
--- NOTE | 2018-07-06 17:21 | PN ---
DATE: 07/06/2018 SUBJECTIVE: The patient is 87 years old, seen and examined, doing a little better. Has mild shortness of breath. Went into rapid rate last night, was transferred to telemetry, has been on Cardizem drip, that is being switched to p.o. PHYSICAL EXAMINATION: VITAL SIGNS: Her vitals done last night, she is afebrile. Pulse 112, respiration 20 and blood pressure 114/55. LUNGS: Bilaterally decreased breath sounds at the bases. HEART: S1 and S2, audible. ABDOMEN: Soft and nontender. Obese, no hepatosplenomegaly. NEUROLOGIC: The patient is awake, alert, oriented and able to communicate. EXTREMITIES: Bilateral legs no edema. LABORATORY DATA: WBC 13.8, hemoglobin 11.7, hematocrit 38.2, platelets 306. Chemistry: Sodium 132, potassium 5, chloride 101, CO2 of 18. BUN 31, creatinine 0.9, blood sugar 124. Total bilirubin 6, AST 461, ALT 337, alkaline phosphatase 205, lipase 337. TSH is 5.36. Flu tested negative. She had CT scan of the chest done that shows bilateral pleural effusion, ascites and cardiomegaly. CT of the abdomen and pelvis was done that also showed bilateral pleural effusion, perfect uterus, distended urinary bladder. ASSESSMENT: 1. New onset atrial fibrillation. 2. Bilateral pleural effusion. 3. Cardiomegaly. PLAN: So the plan is, I will order for procalcitonin for tomorrow. At this point, it looks like it might be a congestive heart failure both right and the left. We will follow up echo. If procalcitonin is low, we can give the antibiotics in the a.m.. Corey Palafox MD
--- NOTE | 2018-07-06 20:41 | CON ---
DATE: 07/06/2018 REASON FOR CONSULTATION: Congestive heart failure and cardiac evaluation. BRIEF CLINICAL HISTORY: This is an 87-year-old female with past medical history significant for type 2 diabetes, thyroid goiter, hypothyroidism; admitted, brought by the family for feeling of generalized weakness, found to be in AFib with rapid ventricular rate and possible congestive heart failure, Cardiology consult was called. The patient's history goes back a week ago when the patient went to Dr. Palafox's office and was constipated, getting some laxative. The patient did not improve and came to the ER. Denies any chest pain. Denies any shortness of breath. Denies any palpitation. Recently, she feels some short of breath, but prior to that, the patient was very active; lives by herself in a mother-daughter apartment; son and the [id number] lives upstairs and she lives downstairs. She does and everything is very functional. PAST MEDICAL HISTORY: Significant for thyroid goiter and diabetes. SOCIAL HISTORY: Denies any smoking. Denies any history of alcohol abuse. PAST SURGICAL HISTORY: Significant for parathyroidectomy and thyroidectomy for goiter. ALLERGIES: ALLERGY TO TYLENOL, HYDROMORPHONE, AND MORPHINE. HOME MEDICATIONS: The patient was taking MiraLax, Linzess as well as taking [place] Thyroid 60 mg p.o. daily, and Januvia 25 mg p.o. daily. REVIEW OF SYSTEMS: As per HPI. RECENT CARDIAC WORKUP: Nothing is available except the patient had an EKG on 07/05/2018 that shows on admission AFib with RVR, septal age undetermined. PHYSICAL EXAMINATION: GENERAL: Height of the patient 5 feet 3 inches, weight of the patient 185 pounds, and body mass index 32 kg/m2. VITAL SIGNS: Temperature afebrile, heart rate 112, and blood pressure 114/55. HEENT: PERRLA. Extraocular muscles intact. NECK: Supple. No carotid bruits or thyromegaly. CHEST: Clear to auscultation. HEART: S1 and S2 regular. ABDOMEN: Soft. EXTREMITIES: Clubbing and cyanosis negative. LABORATORY DATA: Blood workup as follows; WBC 13.8, hemoglobin 11.7, hematocrit 38.2, and platelet count 306. Chemistry shows sodium 132, potassium 5, chloride 101, carbon dioxide 18, anion gap of , BUN 31, and creatinine 0.9. TSH 5.36, triglycerides 77, total cholesterol 127, LDL 72, HDL 74, and lipase 339. Troponin 0.02. AST 461, ALT 331, and alkaline phosphatase 205. IMPRESSION: An 87-year-old female with past medical history significant for hypothyroidism, status post thyroid goiter, thyroidectomy and parathyroidectomy; history of diabetes; admitted with new onset of atrial fibrillation and generalized weakness, found to be elevated liver function tests as well as bilirubinemia. The patient had CAT scan of the abdomen that shows moderate bilateral pleural effusion, bilateral atelectasis, and partially imaged cardiomegaly, history of cholecystectomy in the past, and CAT scan of the abdomen also shows hypoattenuation of liver. Admitted with shortness of breath, found to be in atrial fibrillation with rapid ventricular rate, and hyperbilirubinemia. RECOMMENDATIONS: We will get echo to assess LV function. The patient may need cardiac catheterization. Discussed with the patient. We will wait PT/INR is elevated because of liver, if the LFT returns back to the normal, we will do a cardiac catheterization on ; unless wait till the liver function gets better and this GI issue has been completely resolved. We will not give any statin. We will make that low dose of baby aspirin. The patient is well anticoagulated INR is 2.8. We will hold anticoagulation for now with AFib till the symptoms improve. We will repeat the lab in the morning. Thank you Dr. Palafox for providing us the opportunity in taking care of the patient, Chance. Idania Phan MD cc: Corey Palafox MD.
[2018-07-07] MEDS: Albuterol-Ipratrop 3 mg / 0.5 (3 ml) UD IH SCH ×4 (02:31→21:20)
[2018-07-07] MEDS: Pantoprazole 40 mg EC Tab PO SCH (05:30)
[2018-07-07 06:54] LABS: MEAN CELL VOLUME 79.1 fl (80.0-105.0); MEAN CORPUSCULAR HEMOGLOBIN 23.7 pg (25.0-35.0); MEAN PLATELET VOLUME 10.2 fl (7.0-11.0); RBC 4.64 10^6/uL (3.5-6.1); RED CELL DISTRIBUTION WIDTH 16.1 % (11.5-14.5); WHITE BLOOD COUNT 17.1 10^3/uL (4.5-11.0)
[2018-07-07 07:00] LABS: ALBUMIN 3.4 g/dL (3.0-4.8); CALCIUM 8.8 mg/dL (8.4-10.5)
[2018-07-07 07:11] LABS: PROTHROMBIN TIME 42.5 SECONDS (9.4-12.5)
[2018-07-07 07:15] LABS: INR 3.76
--- NOTE | 2018-07-07 08:05 | CP.PCM.PN ---
Subjective - Date & Time of Evaluation Date of Evaluation: 07/07/18 Time of Evaluation: 06:15 - Subjective Subjective: Awake, alert, denies shortness of breath Reason for consultation and follow up:Cardiac evaluation of shortness of breath, new onset atrial fibrillation with rapid ventricular rate Seen and examined by me and Dr. Phan Objective - Vital Signs/Intake and Output Vital Signs (last 24 hours): Temp Pulse Resp BP Pulse Ox 97.6 F 89 22 137/89 93 L 07/07/18 05:55 07/07/18 05:55 07/07/18 05:55 07/07/18 05:55 07/07/18 05:55 Intake and Output: 07/07/18 07/07/18 06:59 18:59 Intake Total 1130 Output Total 200 Balance 930 - Medications Medications: Current Medications Albuterol/Ipratropium (Duoneb 3 Mg/0.5 Mg (3 Ml) Ud) 3 ml IH Q2H PRN PRN Reason: Shortness of Breath Albuterol/Ipratropium (Duoneb 3 Mg/0.5 Mg (3 Ml) Ud) 3 ml IH [id number] [facility] Last Admin: 07/07/18 07:05 Dose: 3 ml Diltiazem HCl (Cardizem) 60 mg PO TID [facility] Last Admin: 07/06/18 18:02 Dose: 60 mg Enoxaparin Sodium (Lovenox) 80 mg SC Q12H [facility]; Protocol Last Admin: 07/06/18 11:20 Dose: Not Given Furosemide (Lasix) 40 mg IVP DAILY [facility] Last Admin: 07/06/18 12:13 Dose: 40 mg Ceftriaxone Sodium (Rocephin 1 Gram Ivpb) 1 gm in 100 mls @ 100 mls/hr IVPB DAILY [facility]; Protocol Stop: 07/10/18 10:59 Last Admin: 07/06/18 12:14 Dose: 100 mls/hr Azithromycin (Zithromax 500mg In Ns) 500 mg in 250 mls @ 167 mls/hr IVPB DAILY [facility]; Protocol Last Admin: 07/06/18 12:14 Dose: 167 mls/hr Insulin Human Lispro (Humalog Med) 0 units SC ACHS [facility]; Protocol Last Admin: 07/06/18 22:12 Dose: Not Given Ondansetron HCl (Zofran Inj) 4 mg IVP Q6H PRN PRN Reason: Nausea/Vomiting Last Admin: 07/06/18 14:00 Dose: 4 mg Pantoprazole Sodium (Protonix Ec Tab) 40 mg PO 0630 [facility] Last Admin: 07/07/18 05:30 Dose: 40 mg - Labs Labs: 07/07/18 06:00 07/07/18 06:00 PT 42.5 SECONDS (9.4-12.5) H 07/07/18 06:00 INR 3.76 H* 07/07/18 06:00 APTT 32.2 Seconds (26.9-38.3) 07/05/18 14:50 - Constitutional Appears: Non-toxic, No Acute Distress - Eye Exam Eye Exam: Normal appearance Pupil Exam: NORMAL ACCOMODATION - ENT Exam ENT Exam: Mucous Membranes Moist, Normal Exam - Respiratory Exam Respiratory Exam: Decreased Breath Sounds, Wheezes Additional comments: mild shortness of breath at rest - Cardiovascular Exam Cardiovascular Exam: Irregular Rhythm, +S1, +S2 Additional comments: Telemetry atrial fibrillation 70's - GI/Abdominal Exam GI & Abdominal Exam: Soft, Normal Bowel Sounds - Extremities Exam Extremities Exam: Full ROM, Normal Capillary Refill - Neurological Exam Neurological Exam: Alert, Awake, Oriented x3 - Psychiatric Exam Psychiatric exam: Normal Affect, Normal Mood - Skin Skin Exam: Dry, Normal Color, Warm Assessment and Plan - Assessment and Plan (Free Text) Assessment: An 87 year old female who was brought to the ER due to shortness of breath and generalized weakness. She was also in rapid atrial fibrillation upon admission. History of diabetes, thyroid goiter,hypothyroidism, parathyroidectomy, th yroidectomy, cholecystectomy. Patient was recently treated for a 3 week history of constipation by Dr. Palafox with Miralax and Linzess. Elevated liver function test. CT scan of abdomen showed moderate bilateral pleural effusion, bilateral atelectasis, partial cardiomegaly. Echo done- Septal and biatrial hyperthropy, moderately impaired systolic funstion, LVEF 30-35%, mild AR, moderate MR?TR R VSP 26 mmHg, extremely underestimating due to cofiguration of TR jet.no pericardial effusion. May need cardiac catheterization. Tentatively scheduled . Will check LFT if stabilized. Hold anticoagulation for now for atrial fibrillation. Heart rate controlled. Plan: No distress, mild shortness of breath at rest Heart rate controlled, telemetry atrial [id number] Blood pressure controlled On Cardizem 60 mg TID,Lovenox 80 mg BID, Lasix 40 mg daily, Continue antibiotics as ordered Continue current treatment Continue current medications For cardiac cath when LFT's stabilized Hold anticoagulation for afib, INR elevated today 3.76 Elevated potassium 5.9 Will give Kayexlate 30 gms Will follow up Plan and treatment discussed with Dr. Phan
[2018-07-07] MEDS: Insulin Lispro (humaLOG) MEDIUM Coverage SC SCH ×4 (09:25→22:31)
[2018-07-07 09:54] LABS: ACETAMINOPHEN < 10.0 ug/ml (10.0-20.0); SALICYLATE 1 mg/dL (2.0-20.0)
[2018-07-07] MEDS ORDERED: Benzocaine/Menthol (Cepacol) Lozenge MT PRN (09:59)
--- NOTE | 2018-07-07 10:16 | CP.PCM.PN ---
<Александр Flores - Last Filed: 07/07/18 18:49> Subjective - Date & Time of Evaluation Date of Evaluation: 07/07/18 Time of Evaluation: 10:12 - Subjective Subjective: GI Progress Note for Dr. Muhammad Patient seen and examined at bedside. No acute overnight events. Patient offers no complaints at this time. Patient tolerating diet and denies any changes in BM. 12 point ROS reviewed and is negative other than what is stated. Objective - Vital Signs/Intake and Output Vital Signs (last 24 hours): Temp Pulse Resp BP Pulse Ox 97.6 F 89 22 137/89 93 L 07/07/18 05:55 07/07/18 05:55 07/07/18 05:55 07/07/18 05:55 07/07/18 05:55 Intake and Output: 07/07/18 07/07/18 06:59 18:59 Intake Total 1130 Output Total 200 Balance 930 - Medications Medications: Current Medications Albuterol/Ipratropium (Duoneb 3 Mg/0.5 Mg (3 Ml) Ud) 3 ml IH Q2H PRN PRN Reason: Shortness of Breath Albuterol/Ipratropium (Duoneb 3 Mg/0.5 Mg (3 Ml) Ud) 3 ml IH [id number] [facility] Last Admin: 07/07/18 07:05 Dose: 3 ml Benzocaine/Menthol (Cepacol Sore Throat) 1 nancy MT Q2H PRN PRN Reason: Sore Throat Diltiazem HCl (Cardizem) 60 mg PO TID [facility] Last Admin: 07/06/18 18:02 Dose: 60 mg Enoxaparin Sodium (Lovenox) 80 mg SC Q12H [facility]; Protocol Last Admin: 07/06/18 11:20 Dose: Not Given Furosemide (Lasix) 40 mg IVP DAILY [facility] Last Admin: 07/06/18 12:13 Dose: 40 mg Ceftriaxone Sodium (Rocephin 1 Gram Ivpb) 1 gm in 100 mls @ 100 mls/hr IVPB DAILY [facility]; Protocol Stop: 07/10/18 10:59 Last Admin: 07/06/18 12:14 Dose: 100 mls/hr Azithromycin (Zithromax 500mg In Ns) 500 mg in 250 mls @ 167 mls/hr IVPB DAILY [facility]; Protocol Last Admin: 07/06/18 12:14 Dose: 167 mls/hr Insulin Human Lispro (Humalog Med) 0 units SC ACHS [facility]; Protocol Last Admin: 07/07/18 09:25 Dose: Not Given Ondansetron HCl (Zofran Inj) 4 mg IVP Q6H PRN PRN Reason: Nausea/Vomiting Last Admin: 07/06/18 14:00 Dose: 4 mg Pantoprazole Sodium (Protonix Ec Tab) 40 mg PO 0630 [facility] Last Admin: 07/07/18 05:30 Dose: 40 mg - Labs Labs: 07/07/18 06:00 07/07/18 06:00 PT 42.5 SECONDS (9.4-12.5) H 07/07/18 06:00 INR 3.76 H* 07/07/18 06:00 APTT 32.2 Seconds (26.9-38.3) 07/05/18 14:50 - Constitutional Appears: No Acute Distress - Head Exam Head Exam: NORMAL INSPECTION - Eye Exam Eye Exam: Normal appearance, PERRL - ENT Exam ENT Exam: Mucous Membranes Moist, Normal Exam - Neck Exam Neck Exam: Normal Inspection - Respiratory Exam Respiratory Exam: Decreased Breath Sounds (at bases). absent: Rales, Rhonchi, Wheezes - Cardiovascular Exam Cardiovascular Exam: Irregular Rhythm, +S1, +S2. absent: Gallop, Rubs - GI/Abdominal Exam GI & Abdominal Exam: Soft. absent: Distended, Guarding, Tenderness, Rebound - Extremities Exam Extremities Exam: Normal Inspection. absent: Pedal Edema Additional comments: Mild asterixis - Back Exam Back Exam: NORMAL INSPECTION - Neurological Exam Neurological Exam: Alert, Awake, Oriented x3 - Psychiatric Exam Psychiatric exam: Normal Affect - Skin Skin Exam: Normal Color, Warm Assessment and Plan - Assessment and Plan (Free Text) Assessment: 87 year old female with a PMH of non-insulin dependent DM who presented to [facility] [place] f or excessive thirst, weakness, constipation, and 20 lbs weight gain since 06/04/18. GI was consulted due to elevated LFT's, which worsened today despite initial improvement with diuretics. INR also increased today, which is concerning for ischemic liver vs drug induced hepatitis. Echo showed reduced EF. - CT abd/pelv shows bilateral pleural effusions, small ascites - CXR shows pulmonary venous congestion - Abdominal US ascites, echogenic, nodular liver suggestive of hepatic cirrhosis, pulsatile flow in portal vein - Chest CT showed b/l pleural effusions, cardiomegaly, and ascites 1. Acute Liver Failure - Ischemic Liver vs. Drug-Induced 2. New-onset atrial fibrillation 3. CHFrEF Plan: - Acute hepatitis panel - Abdomen Duplex, r/o portal vein thrombosis - LDH, CPK, ammonia ordered - Vitamin K once - Recommend d/c any non-essential medications - Avoid hepatotoxic agents - A fib management per cardio - Further medical management per primary Patient discussed in detail with Dr. Muhammad. Tree Flores, DO PGY2 <Clement Muhammad V - Last Filed: 07/07/18 23:58> Objective - Vital Signs/Intake and Output Vital Signs (last 24 hours): Temp Pulse Resp BP Pulse Ox 97.6 F 104 H 18 132/68 93 L 07/07/18 17:59 07/07/18 17:59 07/07/18 17:59 07/07/18 17:59 07/07/18 05:55 Intake and Output: 07/07/18 07/08/18 18:59 06:59 Intake Total 940 Output Total 300 Balance 640 - Medications Medications: Current Medications Albuterol/Ipratropium (Duoneb 3 Mg/0.5 Mg (3 Ml) Ud) 3 ml IH Q2H PRN PRN Reason: Shortness of Breath Albuterol/Ipratropium (Duoneb 3 Mg/0.5 Mg (3 Ml) Ud) 3 ml IH [id number] Last Admin: 07/07/18 21:20 Dose: 3 ml Benzocaine/Menthol (Cepacol Sore Throat) 1 nancy MT Q2H PRN PRN Reason: Sore Throat Last Admin: 07/07/18 10:36 Dose: 1 nancy Diltiazem HCl (Cardizem) 60 mg PO TID [facility] Last Admin: 07/07/18 19:16 Dose: Not Given Doxycycline Hyclate (Doryx) 100 mg PO Q12 [facility]; Protocol Last Admin: 07/07/18 22:30 Dose: 100 mg Enoxaparin Sodium (Lovenox) 80 mg SC Q12H [facility]; Protocol Last Admin: 07/06/18 11:20 Dose: Not Given Furosemide (Lasix) 40 mg IVP DAILY [facility] Last Admin: 07/07/18 10:35 Dose: 40 mg Insulin Human Lispro (Humalog Med) 0 units SC ACHS [facility]; Protocol Last Admin: 07/07/18 22:31 Dose: Not Given [place] Thyroid 60 Mg ((Home Med)) 60 mg PO DAILY [facility] Ondansetron HCl (Zofran Inj) 4 mg IVP Q6H PRN PRN Reason: Nausea/Vomiting Last Admin: 07/06/18 14:00 Dose: 4 mg Pantoprazole Sodium (Protonix Ec Tab) 40 mg PO 0630 [facility] Last Admin: 07/07/18 05:30 Dose: 40 mg Sitagliptin Phosphate (Januvia) 25 mg PO DAILY [facility] Last Admin: 07/07/18 13:12 Dose: 25 mg - Labs Labs: 07/07/18 06:00 07/07/18 06:00 PT 42.5 SECONDS (9.4-12.5) H 07/07/18 06:00 INR 3.76 H* 07/07/18 06:00 APTT 32.2 Seconds (26.9-38.3) 07/05/18 14:50 Attending/Attestation - Attestation I have personally seen and examined this patient.: Yes I have fully participated in the care of the patient.: Yes I have reviewed all pertinent clinical information, including history, physical exam and plan: Yes Notes (Text): This is an addendum to GI followup report dictated by the Manager Front. The patient was seen and evaluated earlier. Medical records, lab studies, imagings were reviewed. Last 24 hours events reviewed. Agreed with the above treatment plan as outlined in Manager Front 's notes with the addition of the following 07/07/18 23:58
[2018-07-07 10:24] LABS: IRON 12 ug/dL (45-180)
[2018-07-07 10:33] LABS: % IRON SATURATION 3 % (20-55); TOTAL IRON BINDING CAPACITY 453 ug/dL (265-497)
[2018-07-07] MEDS: Azithromycin 500MG/NS 250ml 500 MG/250 ML BAG IVPB SCH (10:37)
[2018-07-07] MEDS: cefTRIAXone 1 gm 1 GM/100 ML BAG IVPB SCH (10:37)
[2018-07-07] MEDS ORDERED: ARMOUR THYROID 60 MG PO SCH ×2 (11:45→17:46)
--- NOTE | 2018-07-07 15:39 | PN ---
DATE: 07/07/2018 SUBJECTIVE: The patient is 87 years old, seen and examined lying in bed, seems to be a little comfortable, less shortness of breath. No cough. PHYSICAL EXAMINATION: VITAL SIGNS: She is afebrile, pulse 92, respirations 22, blood pressure 126/63. LUNGS: Bilateral fair air flow, decreased at bases. HEART: S1 and S2 audible. ABDOMEN: Soft, obese, nontender, no rebound, no guarding. NEUROLOGIC: The patient is awake, alert, oriented. Able to communicate. EXTREMITIES: Bilateral legs have no edema. LABORATORY DATA: WBC 17.1, hemoglobin 11, hematocrit 36.7, platelets 286. PT 42.5, INR 3.76. Chemistry: Sodium 127, potassium 5.9, chloride 95, CO2 of 23, BUN 42, creatinine 1.7, blood sugar of 108. Total bilirubin 7.6, AST 963, ALT 483, alkaline phosphatase is 203. Blood cultures are negative. ASSESSMENT: 1. Bilateral pleural effusion. 2. Cardiomyopathy. 3. Status post rapid atrial fibrillation. 4. Hyperkalemia. PLAN: The plan is, I will discontinue the patient's Rocephin as that causes intrahepatic cholestasis. Discontinue Zithromax as that also contributes to abnormal LFTs. I will add doxycycline. Cardiology input noted and appreciated. Tentatively, the patient is placed for cardiac catheterization tomorrow. Continue to diurese. Her anticoagulant is on hold also. Currently she is on Cardizem. She is on doxycycline. Continue nebulizer treatment. Monitor blood sugars. She is on Digoxin and Lasix. Will restart her [place] Thyroid and she is on Januvia, we will continue that also. Will follow up her electrolytes and CBC in the a.m. Corey Palafox MD
[2018-07-07 17:06] LABS: HEPATITIS B SURFACE AG Negative (NEGATIVE)
[2018-07-07 17:12] LABS: HEPATITIS A IGM NEGATIVE (NEGATIVE); HEPATITIS B CORE AB NEGATIVE (NEGATIVE)
[2018-07-07 17:23] LABS: HEPATITIS C ANTIBODY NEGATIVE (NEGATIVE)
[2018-07-07] MEDS ORDERED: Phytonadione 10 mg/ml Inj (Adult) SC ONE (18:14)
[2018-07-07 20:09] LABS: CK MB% 3.8 % (2.5-3.0)
[2018-07-08] MEDS: Albuterol-Ipratrop 3 mg / 0.5 (3 ml) UD IH SCH ×4 (02:35→19:57)
[2018-07-08] MEDS: Pantoprazole 40 mg EC Tab PO SCH ×2 (06:55→09:14)
--- NOTE | 2018-07-08 07:14 | CP.PCM.PN ---
Subjective - Date & Time of Evaluation Date of Evaluation: 07/08/18 Time of Evaluation: 06:25 - Subjective Subjective: Lying in bed, Awake, alert, denies shortness of breath Reason for consultation and follow up:Cardiac evaluation of shortness of breath, new onset atrial fibrillation with rapid ventricular rate Seen and examined by me and Dr. Phan Objective - Vital Signs/Intake and Output Vital Signs (last 24 hours): Temp Pulse Resp BP Pulse Ox 97.3 F L 102 H 20 119/53 L 93 L 07/08/18 00:01 07/08/18 02:00 07/08/18 03:00 07/08/18 00:01 07/07/18 05:55 Intake and Output: 07/08/18 07/08/18 06:59 18:59 Intake Total 1030 Output Total 850 Balance 180 - Medications Medications: Current Medications Albuterol/Ipratropium (Duoneb 3 Mg/0.5 Mg (3 Ml) Ud) 3 ml IH Q2H PRN PRN Reason: Shortness of Breath Albuterol/Ipratropium (Duoneb 3 Mg/0.5 Mg (3 Ml) Ud) 3 ml IH [id number] [facility] Last Admin: 07/08/18 02:35 Dose: 3 ml Benzocaine/Menthol (Cepacol Sore Throat) 1 nancy MT Q2H PRN PRN Reason: Sore Throat Last Admin: 07/07/18 10:36 Dose: 1 nancy Diltiazem HCl (Cardizem) 60 mg PO TID [facility] Last Admin: 07/07/18 19:16 Dose: Not Given Doxycycline Hyclate (Doryx) 100 mg PO Q12 [facility]; Protocol Last Admin: 07/07/18 22:30 Dose: 100 mg Enoxaparin Sodium (Lovenox) 80 mg SC Q12H [facility]; Protocol Last Admin: 07/06/18 11:20 Dose: Not Given Furosemide (Lasix) 40 mg IVP DAILY [facility] Last Admin: 07/07/18 10:35 Dose: 40 mg Insulin Human Lispro (Humalog Med) 0 units SC ACHS [facility]; Protocol Last Admin: 07/07/18 22:31 Dose: Not Given [place] Thyroid 60 Mg ((Home Med)) 60 mg PO DAILY [facility] Ondansetron HCl (Zofran Inj) 4 mg IVP Q6H PRN PRN Reason: Nausea/Vomiting Last Admin: 07/06/18 14:00 Dose: 4 mg Pantoprazole Sodium (Protonix Ec Tab) 40 mg PO 629 [facility] Last Admin: 07/08/18 06:55 Dose: Not Given Sitagliptin Phosphate (Januvia) 25 mg PO DAILY [facility] Last Admin: 07/07/18 13:12 Dose: 25 mg - Labs Labs: 07/07/18 06:00 07/07/18 06:00 PT 42.5 SECONDS (9.4-12.5) H 07/07/18 06:00 INR 3.76 H* 07/07/18 06:00 APTT 32.2 Seconds (26.9-38.3) 07/05/18 14:50 - Constitutional Appears: Non-toxic, No Acute Distress - Head Exam Head Exam: NORMAL INSPECTION, NORMOCEPHALIC - Eye Exam Eye Exam: Normal appearance Pupil Exam: NORMAL ACCOMODATION - ENT Exam ENT Exam: Mucous Membranes Moist, Normal Exam - Respiratory Exam Respiratory Exam: Decreased Breath Sounds, NORMAL BREATHING PATTERN - Cardiovascular Exam Cardiovascular Exam: Irregular Rhythm, +S1, +S2 Additional comments: Telemetry Afib 90's-100's - GI/Abdominal Exam GI & Abdominal Exam: Soft, Normal Bowel Sounds - Extremities Exam Extremities Exam: Full ROM, Normal Capillary Refill Additional comments: 1+edema - Neurological Exam Neurological Exam: Alert, Awake - Psychiatric Exam Psychiatric exam: Normal Affect, Normal Mood - Skin Skin Exam: Dry, Normal Color, Warm Assessment and Plan - Assessment and Plan (Free Text) Assessment: An 87 year old female who was brought to the ER due to shortness of breath and generalized weakness. She was also in rapid atrial fibrillation upon admission. History of diabetes, thyroid goiter,hypothyroidism, parathyroidectomy, thyroidectomy, cholecystectomy. Patient was recently treated for a 3 week history of constipation by Dr. Palafox with Miralax and Linzess. Elevated liver function test. CT scan of abdomen showed moderate bilateral pleural effusion, bilateral atelectasis, partial cardiomegaly. Echo done- Septal and biatrial hyperthropy, moderately impaired systolic funstion, LVEF 30-35%, mild AR, moderate MR?TR RVSP 26 mmHg, extremely underestimating due to cofiguration of TR jet.no pericardial effusion. May need cardiac catheterization. Hold antico agulation for now for atrial fibrillation. Heart rate controlled . Elevated K yesterday, Kayexalate given. Will cancel cardiac cath today,rescheduled for Thursday. Elevated INR, will repeat labs today. Plan: No distress, Heart rate controlled Blood pressure controlled On Cardizem 60 mg TID, Lovenox 80 mg BID, Lasix 40 mg daily, Continue antibiotics as ordered Continue current treatment Continue current medications For cardiac catheterization when LFT's stabilized, cancelled today, will reschedule Thursday Hold anticoagulation for Atrial fibrillation INR pending today, If still elevated, will give Vitamin K Elevated potassium 5.9 yesterday, Kayexalate given Repeat labs today Will follow up Plan and treatment discussed with Dr. Phan
[2018-07-08] MEDS: Insulin Lispro (humaLOG) MEDIUM Coverage SC SCH ×4 (08:25→22:06)
[2018-07-08 09:15] LABS: HEMOGLOBIN 11.6 g/dL (12.0-16.0); MEAN CORPUSCULAR HEMOGLOBIN 23.8 pg (25.0-35.0); MEAN CORPUSCULAR HGB CONC 30.9 g/dl (31.0-37.0); MEAN PLATELET VOLUME 9.6 fl (7.0-11.0); RBC 4.87 10^6/uL (3.5-6.1); RED CELL DISTRIBUTION WIDTH 16.1 % (11.5-14.5); WHITE BLOOD COUNT 13.7 10^3/uL (4.5-11.0)
[2018-07-08 09:23] LABS: INR 2.62; PROTHROMBIN TIME 29.6 SECONDS (9.4-12.5)
[2018-07-08 09:27] LABS: ALBUMIN 3.4 g/dL (3.0-4.8); CALCIUM 8.5 mg/dL (8.4-10.5)
[2018-07-08 09:38] LABS: BILIRUBIN,DIRECT 3.8 mg/dL (0.0-0.4)
--- NOTE | 2018-07-08 10:31 | CP.PCM.PN ---
<NellycharleytravisKenziebull - Last Filed: 07/08/18 13:08> Subjective - Date & Time of Evaluation Date of Evaluation: 07/08/18 Time of Evaluation: 09:20 - Subjective Subjective: PGY-4 GI Fellow Prog Note Pt lying in bed when seen this AM. States she is doing OK without any complaints. Denied any abd pain, N/V nor signs of bleeding. 5 point ROS negative other than stated above Objective - Vital Signs/Intake and Output Vital Signs (last 24 hours): Temp Pulse Resp BP Pulse Ox 97.6 F 91 H 20 140/70 93 L 07/08/18 06:00 07/08/18 09:14 07/08/18 06:00 07/08/18 09:14 07/07/18 05:55 Intake and Output: 07/08/18 07/08/18 06:59 18:59 Intake Total 1030 Output Total 850 Balance 180 - Medications Medications: Current Medications Albuterol/Ipratropium (Duoneb 3 Mg/0.5 Mg (3 Ml) Ud) 3 ml IH Q2H PRN PRN Reason: Shortness of Breath Albuterol/Ipratropium (Duoneb 3 Mg/0.5 Mg (3 Ml) Ud) 3 ml IH [id number] [facility] Last Admin: 07/08/18 07:39 Dose: Not Given Benzocaine/Menthol (Cepacol Sore Throat) 1 nancy MT Q2H PRN PRN Reason: Sore Throat Last Admin: 07/07/18 10:36 Dose: 1 nancy Diltiazem HCl (Cardizem) 60 mg PO TID [facility] Last Admin: 07/08/18 09:14 Dose: 60 mg Doxycycline Hyclate (Doryx) 100 mg PO Q12 [facility]; Protocol Last Admin: 07/08/18 09:15 Dose: 100 mg Enoxaparin Sodium (Lovenox) 80 mg SC Q12H [facility]; Protocol Last Admin: 07/06/18 11:20 Dose: Not Given Furosemide (Lasix) 40 mg IVP DAILY [facility] Last Admin: 07/08/18 09:14 Dose: 40 mg Insulin Human Lispro (Humalog Med) 0 units SC ACHS [facility]; Protocol Last Admin: 07/08/18 08:25 Dose: Not Given [place] Thyroid 60 Mg ((Home Med)) 60 mg PO DAILY [facility] Ondansetron HCl (Zofran Inj) 4 mg IVP Q6H PRN PRN Reason: Nausea/Vomiting Last Admin: 07/06/18 14:00 Dose: 4 mg Pantoprazole Sodium (Protonix Ec Tab) 40 mg PO 0630 [facility] Last Admin: 07/08/18 09:14 Dose: 40 mg Sitagliptin Phosphate (Januvia) 25 mg PO DAILY [facility] Last Admin: 07/08/18 09:13 Dose: 25 mg - Labs Labs: 07/08/18 08:55 07/08/18 08:55 PT 29.6 SECONDS (9.4-12.5) H 07/08/18 08:55 INR 2.62 07/08/18 08:55 APTT 32.2 Seconds (26.9-38.3) 07/05/18 14:50 - Constitutional Appears: Well, No Acute Distress - Head Exam Head Exam: ATRAUMATIC, NORMAL INSPECTION - ENT Exam ENT Exam: Mucous Membranes Moist. absent: Mucous Membranes Dry - Respiratory Exam Respiratory Exam: NORMAL BREATHING PATTERN. absent: Accessory Muscle Use, Respiratory Distress - GI/Abdominal Exam GI & Abdominal Exam: Distended (mildly), Soft, Normal Bowel Sounds. absent: Bruit, Firm, Guarding, Rigid, Tenderness, Mass, Pulsatile Mass Assessment and Plan - Assessment and Plan (Free Text) Assessment: 87 year old female with a PMH of non-insulin dependent DM who presented to [facility] [place] for excessive thirst, weakness, constipation, and 20 lbs weight gain since 06/04/18. GI was consulted due to elevated LFT's, which worsened today despite initial improvement with diuretics. INR also increased today, which is concerning for ischemic liver vs drug induced hepatitis. Echo showed reduced EF. - CT abd/pelv shows bilateral pleural effusions, small ascites - CXR shows pulmonary venous congestion - Abdominal US ascites, echogenic, nodular liver suggestive of hepatic cirrhosi s, pulsatile flow in portal vein - Chest CT showed b/l pleural effusions, cardiomegaly, and ascites 1. Acute Liver Failure - Ischemic Liver vs. Drug-Induced vs Other 2. New-onset atrial fibrillation 3. HFrEF Plan: - Vitamin K 5 mg again today since INR improved post 5 mg on 07/07/18 - Acute hepatitis panel negative - Abdomen Duplex, r/o Budd Chiari, portal vein thrombosis pending - Recommend d/c any non-essential medications - Avoid hepatotoxic agents - A-fib management per cardio - Further medical management per primary - Will consider para and further liver disease w/u pending course - Trend CMP, CBC, INR Patient discussed with Dr. Muhammad. <Clement Muhammad V - Last Filed: 07/08/18 23:12> Objective - Vital Signs/Intake and Output Vital Signs (last 24 hours): Temp Pulse Resp BP Pulse Ox 97.5 F L 80 19 108/86 93 L 07/08/18 17:47 07/08/18 18:00 07/08/18 17:47 07/08/18 17:47 07/07/18 05:55 - Medications Medications: Current Medications Albuterol/Ipratropium (Duoneb 3 Mg/0.5 Mg (3 Ml) Ud) 3 ml IH Q2H PRN PRN Reason: Shortness of Breath Albuterol/Ipratropium (Duoneb 3 Mg/0.5 Mg (3 Ml) Ud) 3 ml IH [id number] [facility] Last Admin: 07/08/18 19:57 Dose: 3 ml Benzocaine/Menthol (Cepacol Sore Throat) 1 nancy MT Q2H PRN PRN Reason: Sore Throat Last Admin: 07/07/18 10:36 Dose: 1 nancy Diltiazem HCl (Cardizem) 60 mg PO TID [facility] Last Admin: 07/08/18 17:35 Dose: Not Given Furosemide (Lasix) 40 mg IVP DAILY [facility] Last Admin: 07/08/18 09:14 Dose: 40 mg Home Med (Home Med) 2 unit PO DAILY [facility] Insulin Human Lispro (Humalog Med) 0 units SC [facility]; Protocol Last Admin: 07/08/18 22:06 Dose: Not Given Ondansetron HCl (Zofran Inj) 4 mg IVP Q6H PRN PRN Reason: Nausea/Vomiting Last Admin: 07/06/18 14:00 Dose: 4 mg Pantoprazole Sodium (Protonix Ec Tab) 40 mg PO 0630 [facility] Last Admin: 07/08/18 09:14 Dose: 40 mg Sitagliptin Phosphate (Januvia) 25 mg PO DAILY [facility] Last Admin: 07/08/18 09:13 Dose: 25 mg - Labs Labs: 07/08/18 08:55 07/08/18 08:55 PT 29.6 SECONDS (9.4-12.5) H 07/08/18 08:55 INR 2.62 07/08/18 08:55 APTT 32.2 Seconds (26.9-38.3) 07/05/18 14:50 Attending/Attestation - Attestation I have personally seen and examined this patient.: Yes I have fully participated in the care of the patient.: Yes I have reviewed all pertinent clinical information, including history, physical exam and plan: Yes Notes (Text): This is an addendum to GI progrss report dictated by GI fellow. The patient was seen and evaluated earlier. Medical records, lab studies, imagings were reviewed. Last 24 hours events reviewed. Agreed with the above treatment plan as outlined in Oven Tender 's notes with the addition of the following LFT continues to show upward trend Increasing INR did receive vitamin K 5 mg yesterday Etiology is probably multifactorial etiology Discussed with Dr. Palafox Recommend another 5 mg of vitamin K today Follow-up hemoglobin Continue supportive care 07/08/18 23:06
[2018-07-08] MEDS ORDERED: Potassium Chloride 20 mEq ER Tab PO ONE ×2 (12:11→14:00)
[2018-07-08] MEDS ORDERED: Phytonadione 10 mg/ml Inj (Adult) SC ONE (13:05)
--- NOTE | 2018-07-08 17:20 | PN ---
DATE: 07/08/2018 SUBJECTIVE: The patient is 87 years old, seen and examined. She states she feels she is less short of breath. Legs are not swollen. She did have bowel movement. No fever, no chills, no nausea, no vomiting, no diarrhea. PHYSICAL EXAMINATION: VITAL SIGNS: She is afebrile, pulse 90, respirations 20, blood pressure 140/70. LUNGS: Bilateral decreased breath sounds at bases. HEART: S1 and S2 audible. ABDOMEN: Soft, obese, nontender, no rebound, no guarding. NEUROLOGIC: The patient is awake, alert, oriented. Able to communicate. EXTREMITIES: Bilateral legs, no edema. LABORATORY DATA: WBC 13.7, hemoglobin 11.6, hematocrit 37.5, platelets 285. PT 29.6, INR 2.62. Chemistry: Sodium 131, potassium 3.5, chloride 95, CO2 , BUN 46, creatinine 1.4, blood sugar of 129. Total bilirubin 5.8, AST 735. She has abdominal sonogram done, results are pending. Echocardiogram shows cardiomyopathy with ejection fraction of 30 to 35%. Abdominal sonogram shows . ASSESSMENT: 1. Status post rapid atrial fibrillation. 2. Bilateral pleural effusion. 3. Cirrhosis of liver. 4. Coagulopathy. 5. Non insulin dependent diabetes. 6. Hypothyroidism. PLAN: The plan is, currently her Lovenox is on hold, anticoagulant is on hold, she is on doxycycline. She is on nebulizer treatment. We will continue her diuretics and continue on Protonix, continue her Madeline Thyroid, and we will follow up patient in a.m. Corey Palafox MD
[2018-07-09] MEDS: Albuterol-Ipratrop 3 mg / 0.5 (3 ml) UD IH SCH ×4 (01:13→19:59)
[2018-07-09] MEDS: Pantoprazole 40 mg EC Tab PO SCH (05:30)
[2018-07-09 06:28] LABS: INR 1.96; PROTHROMBIN TIME 22.1 SECONDS (9.4-12.5)
[2018-07-09 06:42] LABS: BASO # 0.01 K/mm3 (0.0-2.0); BASO % 0.1 % (0.0-3.0); EOS # 0.1 (0.0-0.7); EOS % 0.6 % (1.5-5.0); HEMOGLOBIN 10.9 g/dL (12.0-16.0); LYMPH # 1.6 (1.2-3.4); LYMPH % 12.6 % (22.0-35.0); MEAN CELL VOLUME 77.3 fl (80.0-105.0); MEAN CORPUSCULAR HGB CONC 31.1 g/dl (31.0-37.0); MEAN PLATELET VOLUME 9.5 fl (7.0-11.0); MONO # 1.8 (0.1-0.6); MONO % 14.5 % (1.0-6.0); RBC 4.54 10^6/uL (3.5-6.1); WHITE BLOOD COUNT 12.7 10^3/uL (4.5-11.0)
[2018-07-09 06:51] LABS: ALBUMIN 3.1 g/dL (3.0-4.8); ALT/SGPT 352 U/L (7-56); AST/SGOT 484 U/L (14-36); BLOOD UREA NITROGEN 40 mg/dL (7-21); CALCIUM 8.3 mg/dL (8.4-10.5); GFR NON-AFRICAN AMERICAN 52
--- NOTE | 2018-07-09 07:10 | CP.PCM.PN ---
Subjective - Date & Time of Evaluation Date of Evaluation: 07/09/18 Time of Evaluation: 06:20 - Subjective Subjective: Awake, alert, denies shortness of breath Reason for consultation and follow up:Cardiac evaluation of shortness of breath, new onset atrial fibrillation with rapid ventricular rate Seen and examined by me and Dr. Phan Objective - Vital Signs/Intake and Output Vital Signs (last 24 hours): Temp Pulse Resp BP Pulse Ox 97.3 F L 90 20 110/51 L 94 L 07/09/18 06:00 07/09/18 06:00 07/09/18 06:00 07/09/18 06:00 07/09/18 06:00 Intake and Output: 07/09/18 07/09/18 06:59 18:59 Intake Total 300 Output Total 200 Balance 100 - Medications Medications: Current Medications Albuterol/Ipratropium (Duoneb 3 Mg/0.5 Mg (3 Ml) Ud) 3 ml IH Q2H PRN PRN Reason: Shortness of Breath Albuterol/Ipratropium (Duoneb 3 Mg/0.5 Mg (3 Ml) Ud) 3 ml IH [id number] [facility] Last Admin: 07/09/18 01:13 Dose: 3 ml Benzocaine/Menthol (Cepacol Sore Throat) 1 nancy MT Q2H PRN PRN Reason: Sore Throat Last Admin: 07/07/18 10:36 Dose: 1 nancy Diltiazem HCl (Cardizem) 60 mg PO TID [facility] Last Admin: 07/08/18 17:35 Dose: Not Given Furosemide (Lasix) 40 mg IVP DAILY [facility] Last Admin: 07/08/18 09:14 Dose: 40 mg Home Med (Home Med) 2 unit PO DAILY [facility] Insulin Human Lispro (Humalog Med) 0 units SC [facility]; Protocol Last Admin: 07/08/18 22:06 Dose: Not Given Ondansetron HCl (Zofran Inj) 4 mg IVP Q6H PRN PRN Reason: Nausea/Vomiting Last Admin: 07/06/18 14:00 Dose: 4 mg Pantoprazole Sodium (Protonix Ec Tab) 40 mg PO 0630 [facility] Last Admin: 07/09/18 05:30 Dose: 40 mg Sitagliptin Phosphate (Januvia) 25 mg PO DAILY [facility] Last Admin: 07/08/18 09:13 Dose: 25 mg - Labs Labs: 07/09/18 06:00 07/09/18 06:00 PT 22.1 SECONDS (9.4-12.5) H 07/09/18 06:00 INR 1.96 07/09/18 06:00 APTT 32.2 Seconds (26.9-38.3) 07/05/18 14:50 - Constitutional Appears: Non-toxic, No Acute Distress - Head Exam Head Exam: NORMAL INSPECTION, NORMOCEPHALIC - Eye Exam Eye Exam: Normal appearance Pupil Exam: NORMAL ACCOMODATION - ENT Exam ENT Exam: Mucous Membranes Moist, Normal Exam - Respiratory Exam Respiratory Exam: Decreased Breath Sounds, NORMAL BREATHING PATTERN - Cardiovascular Exam Cardiovascular Exam: Irregular Rhythm, +S1, +S2 Additional comments: Telemetry atrial fibrillation 80's - GI/Abdominal Exam GI & Abdominal Exam: Soft, Normal Bowel Sounds - Extremities Exam Extremities Exam: Full ROM - Neurological Exam Neurological Exam: Alert, Awake, Oriented x3 - Psychiatric Exam Psychiatric exam: Normal Affect, Normal Mood - Skin Skin Exam: Normal Color, Warm Assessment and Plan - Assessment and Plan (Free Text) Assessment: An 87 year old female who was brought to the ER due to shortness of breath and generalized weakness. She was also in rapid atrial fibrillation upon admission. History of diabetes, thyroid goiter,hypothyroidism, parathyroidectomy, thyroidectomy, cholecystectomy. Patient was recently treated for a 3 week history of constipation by Dr. Palafox with Miralax and Linzess. Elevated liver function test. CT scan of abdomen showed moderate bilateral pleural effusion, bilateral atelectasis, partial cardiomegaly. Echo done- Septal and biatrial hyperthropy, moderately impaired systolic funstion, LVEF 30-35%, mild AR, moderate MR?TR RVSP 26 mmHg, extremely underestimating due to cofiguration of TR jet.no pericardial effusion. May need cardiac catheterization. Hold anticoag ulation for now for atrial fibrillation. Heart rate controlled . Cardiac cath rescheduled due to elevated LFT's and elevated INR. Vitamin K given. Possibly cardiac cath Thursday if LFT's improve.GI on consult. Plan: No distress, denies shortness of breath Heart rate controlled Blood pressure controlled For cardiac catheterization Thursday pending LFT's improve LFT's trending down On Cardizem 60 mg TID, Lovenox 80 mg BID, Lasix 40 mg daily, Continue antibiotics as ordered Continue current treatment Continue current medications INR elevated, Vitamin K given yesterday INR today WNL Will anticoagulate for Atrial fib after cardiac cath Will follow up Plan and treatment discussed with Dr. Phan
[2018-07-09] MEDS: Insulin Lispro (humaLOG) MEDIUM Coverage SC SCH ×4 (08:29→22:34)
[2018-07-09] MEDS ORDERED: Potassium Chloride 20 mEq ER Tab PO ONE (09:18)
[2018-07-09] MEDS: ARMOUR THYROID 60 MG PO SCH (09:49)
--- NOTE | 2018-07-09 10:20 | CP.PCM.APN ---
Subjective - Date & Time of Evaluation Date of Evaluation: 07/09/18 Time of Evaluation: 10:07 - Subjective Subjective: pt seen and examined at bedside, pt asleep in NAD , easily arousable , reports no complaints at this time Review of Systems - Review of Systems All systems: reviewed and no additional remarkable complaints except Objective - Vital Signs/Intake and Output Vital Signs (last 24 hours): Temp Pulse Resp BP Pulse Ox 97.3 F L 94 H 20 122/72 94 L 07/09/18 06:00 07/09/18 09:47 07/09/18 06:00 07/09/18 09:48 07/09/18 06:00 Intake and Output: 07/09/18 07/09/18 06:59 18:59 Intake Total 300 Output Total 200 Balance 100 - Medications Medications: Current Medications Albuterol/Ipratropium (Duoneb 3 Mg/0.5 Mg (3 Ml) Ud) 3 ml IH Q2H PRN PRN Reason: Shortness of Breath Albuterol/Ipratropium (Duoneb 3 Mg/0.5 Mg (3 Ml) Ud) 3 ml IH [id number] [facility] Last Admin: 07/09/18 07:40 Dose: 3 ml Aspirin (Aspirin Chewable) 81 mg PO DAILY [facility] Last Admin: 07/09/18 09:46 Dose: 81 mg Benzocaine/Menthol (Cepacol Sore Throat) 1 nancy MT Q2H PRN PRN Reason: Sore Throat Last Admin: 07/07/18 10:36 Dose: 1 nancy Clopidogrel Bisulfate (Plavix) 75 mg PO DAILY [facility] Last Admin: 07/09/18 09:45 Dose: 75 mg Diltiazem HCl (Cardizem) 60 mg PO TID [facility] Last Admin: 07/09/18 09:47 Dose: 60 mg Furosemide (Lasix) 40 mg IVP DAILY [facility] Last Admin: 07/09/18 09:48 Dose: 40 mg Home Med (Home Med) 2 unit PO DAILY [facility] Last Admin: 07/09/18 09:49 Dose: 2 unit Insulin Human Lispro (Humalog Med) 0 units SC [facility]; Protocol Last Admin: 07/09/18 08:29 Dose: 1 units Ondansetron HCl (Zofran Inj) 4 mg IVP Q6H PRN PRN Reason: Nausea/Vomiting Last Admin: 07/06/18 14:00 Dose: 4 mg Pantoprazole Sodium (Protonix Ec Tab) 40 mg PO 0630 [facility] Last Admin: 07/09/18 05:30 Dose: 40 mg Sitagliptin Phosphate (Januvia) 25 mg PO DAILY [facility] Last Admin: 07/09/18 09:46 Dose: 25 mg - Labs Labs: 07/09/18 06:00 07/09/18 06:00 PT 22.1 SECONDS (9.4-12.5) H 07/09/18 06:00 INR 1.96 07/09/18 06:00 APTT 32.2 Seconds (26.9-38.3) 07/05/18 14:50 - Constitutional Appears: No Acute Distress - Head Exam Head Exam: NORMOCEPHALIC - Eye Exam Eye Exam: Normal appearance - ENT Exam ENT Exam: Mucous Membranes Moist - Respiratory Exam Respiratory Exam: Decreased Breath Sounds, NORMAL BREATHING PATTERN - Cardiovascular Exam Cardiovascular Exam: +S1, +S2 - GI/Abdominal Exam GI & Abdominal Exam: Normal Bowel Sounds - Neurological Exam Neurological Exam: Alert, Awake, Oriented x3 - Skin Skin Exam: Dry, Intact Assessment and Plan - Assessment and Plan (Free Text) Plan: ITS Impressions Chest X-Ray 07/05/18 14:14 IMPRESSION: Poor inspiration with low lung volumes, crowded bronchovascular markings and mild bibasilar atelectasis. Central pulmonary vasculature is also increased possibly due to low lung volumes however mild chronic compensated pulmonary venous congestive changes not excluded. Clinical correlation recommended. Abdomen/Pelvis CT 07/05/18 14:41 IMPRESSION: Diminutive/atrophic uterus. 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 Dilated left gonadal vein. Thick-walled under distended urinary bladder with associated inflammatory changes; correlate clinically for cystitis. Small abdominal and pelvic ascites. Moderate bilateral pleural effusions. Bibasilar atelectasis. Partially imaged cardiomegaly. Additional findings as above. Chest CT 07/05/18 19:29 IMPRESSION: Bilateral pleural effusions. Ascites. Cardiomegaly. Abdomen Ultrasound 07/05/18 19:36 IMPRESSION: Ascites. Echogenic liver with nodular contour suggestive of hepatic cirrhosis. Correlate clinically. Status post cholecystectomy. No evidence of biliary obstruction. Incidental 1.6 cm left renal cortical cyst pulsatile flow in portal vein may reflect right heart failure, hepatic cirrhosis or tricuspid regurgitation. 87 yr white female with pmh ig for dm, parathyroidecomy initially admitted with gen weakness, thirst found to have new onset afib with RVR s/p iv caardizem drip, elevated ;actate and cxr showing chf as well as abnormal LFT admitted for fi=urther mgmt with cardiology and GI eval afib with RVR s/p iv cardizem cardiology recs noted plan for cath Thursday if stable , card recs reviewed chf iv lasix 40 bid cxr with Central pulmonary vasculature elvated INR resolved, s/p vit K ascites, hyperbilirubenia and elevated lft Gi consultation and recs reviewed Abd US reviewed discuss with Krystin re : eval pending will continue to follow clinically BPCI/TIC - BPCIA/TIC Educated pt/family on BPCIA/CIR/Med to Bed Programs: Yes Flyers given, including CMS Beneficiary letter: Yes Pt/family verbalized understanding & agreed to program: Yes
--- NOTE | 2018-07-09 10:49 | CP.PCM.PN ---
<Александр Flores - Last Filed: 07/09/18 18:08> Subjective - Date & Time of Evaluation Date of Evaluation: 07/09/18 Time of Evaluation: 10:47 - Subjective Subjective: GI Progress Note for Dr. Muhammad Patient seen and examined at bedside. No acute overnight events. Patient offers no complaints at this time. Patient denies CP, SOB, n/v/d, abdominal pain, fever, chills, AGUSTIN, and dizziness. Objective - Vital Signs/Intake and Output Vital Signs (last 24 hours): Temp Pulse Resp BP Pulse Ox 97.3 F L 94 H 20 122/72 94 L 07/09/18 06:00 07/09/18 09:47 07/09/18 06:00 07/09/18 09:48 07/09/18 06:00 Intake and Output: 07/09/18 07/09/18 06:59 18:59 Intake Total 300 Output Total 200 Balance 100 - Medications Medications: Current Medications Albuterol/Ipratropium (Duoneb 3 Mg/0.5 Mg (3 Ml) Ud) 3 ml IH Q2H PRN PRN Reason: Shortness of Breath Albuterol/Ipratropium (Duoneb 3 Mg/0.5 Mg (3 Ml) Ud) 3 ml IH [id number] [facility] Last Admin: 07/09/18 07:40 Dose: 3 ml Aspirin (Aspirin Chewable) 81 mg PO DAILY [facility] Last Admin: 07/09/18 09:46 Dose: 81 mg Benzocaine/Menthol (Cepacol Sore Throat) 1 nancy MT Q2H PRN PRN Reason: Sore Throat Last Admin: 07/07/18 10:36 Dose: 1 nancy Clopidogrel Bisulfate (Plavix) 75 mg PO DAILY [facility] Last Admin: 07/09/18 09:45 Dose: 75 mg Diltiazem HCl (Cardizem) 60 mg PO TID [facility] Last Admin: 07/09/18 09:47 Dose: 60 mg Furosemide (Lasix) 40 mg IVP DAILY [facility] Last Admin: 07/09/18 09:48 Dose: 40 mg Home Med (Home Med) 2 unit PO DAILY [facility] Last Admin: 07/09/18 09:49 Dose: 2 unit Insulin Human Lispro (Humalog Med) 0 units SC [facility]; Protocol Last Admin: 07/09/18 08:29 Dose: 1 units Ondansetron HCl (Zofran Inj) 4 mg IVP Q6H PRN PRN Reason: Nausea/Vomiting Last Admin: 07/06/18 14:00 Dose: 4 mg Pantoprazole Sodium (Protonix Ec Tab) 40 mg PO 0630 [facility] Last Admin: 07/09/18 05:30 Dose: 40 mg Sitagliptin Phosphate (Januvia) 25 mg PO DAILY [facility] Last Admin: 07/09/18 09:46 Dose: 25 mg - Labs Labs: 07/09/18 06:00 07/09/18 06:00 PT 22.1 SECONDS (9.4-12.5) H 07/09/18 06:00 INR 1.96 07/09/18 06:00 APTT 32.2 Seconds (26.9-38.3) 07/05/18 14:50 - Constitutional Appears: No Acute Distress - Head Exam Head Exam: NORMAL INSPECTION - Eye Exam Eye Exam: Normal appearance Pupil Exam: NORMAL ACCOMODATION - ENT Exam ENT Exam: Mucous Membranes Moist, Normal Exam - Neck Exam Neck Exam: Normal Inspection - Respiratory Exam Respiratory Exam: Clear to Ausculation Bilateral. absent: Rales, Rhonchi, Wheezes - Cardiovascular Exam Cardiovascular Exam: RRR, +S1, +S2. absent: Gallop, Rubs, Murmur - GI/Abdominal Exam GI & Abdominal Exam: Soft. absent: Distended, Guarding, Tenderness, Rebound Additional comments: no asterixis noted - Extremities Exam Extremities Exam: Normal Inspection - Back Exam Back Exam: NORMAL INSPECTION - Neurological Exam Neurological Exam: Alert, Awake, Oriented x3 - Skin Skin Exam: Normal Color, Warm Assessment and Plan - Assessment and Plan (Free Text) Assessment: 87 year old female with a PMH of non-insulin dependent DM who presented to [facility] for excessive thirst, weakness, constipation, and 20 lbs weight gain since 06/04/18. GI was consulted due to elevated LFT's, which worsened today despite initial improvement with diuretics. INR also increased today, which is concerning for ischemic liver vs drug induced hepatitis. Echo showed reduced EF. - CT abd/pelv shows bilateral pleural effusions, small ascites - CXR shows pulmonary venous congestion - Abdominal US ascites, echogenic, nodular liver suggestive of hepatic cirrhosis, pulsatile flow in portal vein - Chest CT showed b/l pleural effusions, cardiomegaly, and ascites 1. Acute Liver Failure - Ischemic Liver vs. Drug-Induced vs Other 2. New-onset atrial fibrillation 3. HFrEF Plan: - Bowel regimen started; miralax; dulcolax in AM - INR continues to improve s/p several doses of Vitamin K - Acute hepatitis panel negative - Abdomen Duplex, r/o Budd Chiari, portal vein thrombosis pending - Recommend d/c any non-essential medications - Avoid hepatotoxic agents - A-fib management per cardio - Further medical management per primary - Will consider para and further liver disease w/u pending course - Trend CMP, CBC, INR Patient discussed with Dr. Muhammad. <Clement Muhammad V - Last Filed: 07/09/18 23:06> Objective - Vital Signs/Intake and Output Vital Signs (last 24 hours): Temp Pulse Resp BP Pulse Ox 97.8 F 84 19 119/39 L 94 L 07/09/18 18:00 07/09/18 22:00 07/09/18 18:00 07/09/18 17:37 07/09/18 06:00 - Medications Medications: Current Medications Albuterol/Ipratropium (Duoneb 3 Mg/0.5 Mg (3 Ml) Ud) 3 ml IH Q2H PRN PRN Reason: Shortness of Breath Albuterol/Ipratropium (Duoneb 3 Mg/0.5 Mg (3 Ml) Ud) 3 ml IH [id number] [facility] Last Admin: 07/09/18 19:59 Dose: 3 ml Aspirin (Aspirin Chewable) 81 mg PO DAILY [facility] Last Admin: 07/09/18 09:46 Dose: 81 mg Benzocaine/Menthol (Cepacol Sore Throat) 1 nancy MT Q2H PRN PRN Reason: Sore Throat Last Admin: 07/07/18 10:36 Dose: 1 nancy Bisacodyl (Dulcolax) 5 mg PO ONCE ONE Stop: 07/10/18 08:01 Clopidogrel Bisulfate (Plavix) 75 mg PO DAILY [facility] Last Admin: 07/09/18 09:45 Dose: 75 mg Diltiazem HCl (Cardizem) 60 mg PO TID [facility] Last Admin: 07/09/18 17:37 Dose: 60 mg Furosemide (Lasix) 40 mg IVP DAILY [facility] Last Admin: 07/09/18 09:48 Dose: 40 mg Glimepiride (Amaryl) 2 mg PO DAILY [facility] Last Admin: 07/09/18 12:48 Dose: 2 mg Home Med (Home Med) 2 unit PO DAILY [facility] Last Admin: 07/09/18 09:49 Dose: 2 unit Insulin Human Lispro (Humalog Med) 0 units SC [facility]; Protocol Last Admin: 07/09/18 22:34 Dose: Not Given Ondansetron HCl (Zofran Inj) 4 mg IVP Q6H PRN PRN Reason: Nausea/Vomiting Last Admin: 07/06/18 14:00 Dose: 4 mg Pantoprazole Sodium (Protonix Ec Tab) 40 mg PO 0630 [facility] Last Admin: 07/09/18 05:30 Dose: 40 mg Polyethylene Glycol (Miralax) 17 gm PO DAILY [facility] Potassium Chloride (K-Dur 20 Meq Er Tab) 20 meq PO BRK [facility] Sitagliptin Phosphate (Januvia) 50 mg PO DAILY [facility] - Labs Labs: 07/09/18 06:00 07/09/18 13:00 PT 22.1 SECONDS (9.4-12.5) H 07/09/18 06:00 INR 1.96 07/09/18 06:00 APTT 32.2 Seconds (26.9-38.3) 07/05/18 14:50 Attending/Attestation - Attestation I have personally seen and examined this patient.: Yes I have fully participated in the care of the patient.: Yes I have reviewed all pertinent clinical information, including history, physical exam and plan: Yes Notes (Text): This is an addendum to GI progress report dictated by the GI Fellow. The patient was seen and examined earlier. Medical records, lab studies, imagings were reviewed. Last 24 hours events reviewed. Agreed with the above treatment plan as outlined in GI Fellow 's notes with the addition of the following Significant improvement of his mental status patient last 2 days LFT shows improvement The etiology of the LFTs in case he smoked a multifactorial, chronic liver disease probable cirrhosis, hepatic congestion, drug-induced should be considered as etiologies Continue to follow LFT Discussed with the family who were at bedside Patient did not have any significant bowel movement has been We will start a higher dose of MiraLAX and dulcolax 07/09/18 23:02
--- NOTE | 2018-07-09 16:10 | PN ---
DATE: 07/09/2018 SUBJECTIVE: The patient is 87 years old, seen and examined. Sitting in chair and seems to be comfortable. She states she feels a lot better as compared to the day she came in. She can breathe and she feels overall better. PHYSICAL EXAMINATION: VITAL SIGNS: She is afebrile, pulse 108, respirations 20, blood pressure 122/72. LUNGS: Bilateral decreased breath sounds at bases. HEART: S1 and S2 audible. ABDOMEN: Soft, obese, nontender, no rebound, no guarding. NEUROLOGIC: The patient is awake, alert, oriented. Able to communicate. EXTREMITIES: Bilateral legs, no edema. LABORATORY DATA: WBC 12.7, hemoglobin 10.9, hematocrit 35.1, platelets 253. PT 22.1, INR 1.96. Chemistry: Sodium 130, potassium 3.7, chloride 95, CO2 30, BUN 40, creatinine 1, blood sugar of 163. ASSESSMENT: 1. Bilateral pleural effusion. 2. Cirrhosis of liver. 3. Cardiomyopathy with congestive heart failure. 4. Coagulopathy. PLAN: Currently the patient is on aspirin, she is on Cardizem. She is getting nebulizer treatment. I will increase her Januvia to 50 mg and add some oral hypoglycemics. Monitor her blood sugar. Cardiology input noted and appreciated. Plan for cardiac cath on Thursday. Corey Palafox MD
--- NOTE | 2018-07-09 21:17 | US ---
PROCEDURE: Portal vein duplex ultrasound. CLINICAL HISTORY: Cirrhosis. Deteriorating liver function. Evaluate for portal vein thrombosis. PHYSICIAN(S): Mansoor Rushing M.D. FINDINGS: The extrahepatic portal vein is patent with hepatopetal flow. No sonographic evidence for thrombus or obstruction is seen. The 3 hepatic veins are visualized centrally and patent. The hepatic artery is patent. The spleen is somewhat enlarged. There is no evidence of ascites in the upper abdomen IMPRESSION: 1. Patent portal vein with hepatopetal flow.
[2018-07-10] MEDS: Albuterol-Ipratrop 3 mg / 0.5 (3 ml) UD IH SCH ×4 (01:11→20:11)
[2018-07-10] MEDS: Pantoprazole 40 mg EC Tab PO SCH (05:33)
[2018-07-10 06:33] LABS: INR 1.6; PROTHROMBIN TIME 18.1 SECONDS (9.4-12.5)
[2018-07-10] MEDS ORDERED: Bisacodyl 5mg EC Tab PO ONE (08:00)
[2018-07-10] MEDS: Insulin Lispro (humaLOG) MEDIUM Coverage SC SCH ×4 (08:10→22:23)
[2018-07-10] MEDS: Potassium Chloride 20 mEq ER Tab PO SCH (08:18)
[2018-07-10] MEDS: ARMOUR THYROID 60 MG PO SCH (10:31)
[2018-07-10] MEDS: POLYETHYLENE GLYCOL 3350 17 GM/Dose PACKET PO SCH (10:33)
--- NOTE | 2018-07-10 13:31 | PN ---
DATE: 07/10/2018 SUBJECTIVE: The patient is an 87-year-old, seen and examined, lying in bed, seems to be very comfortable. She states she feels a lot better, much less shortness of breath, less fogginess. PHYSICAL EXAMINATION VITAL SIGNS: She is afebrile, pulse 95, respirations 19, blood pressure 115/57. LUNGS: Bilateral decreased breath sounds at bases. HEART: S1 and S2 audible. ABDOMEN: Soft, nontender. No rebound. No guarding. NEUROLOGIC: The patient is awake, alert, oriented. Able to communicate. EXTREMITIES: Bilateral legs, no edema. LABORATORY DATA: WBC is 12.7, hemoglobin 10, hematocrit 35, platelets of 253. PT 18.1, INR 1.6. Chemistry: Blood sugar is 154. Blood cultures are negative. ASSESSMENT: 1. Cardiomyopathy, rule out underlying ischemia. 2. Cirrhosis of liver. 3. Bilateral pleural effusion. 4. Coagulopathy secondary to cirrhosis of liver. 5. Noninsulin-dependent diabetes. 6. Hypothyroidism. PLAN: Currently, she is on Amaryl, aspirin, diltiazem. She is on nebulizer treatment. Her blood sugar is being monitored. She is on Plavix, Protonix. We will follow up her CBC and CMP in a.m. Corey Palafox MD
--- NOTE | 2018-07-10 14:06 | CP.PCM.PN ---
<Arvind Wolf - Last Filed: 07/10/18 15:27> Subjective - Date & Time of Evaluation Date of Evaluation: 07/10/18 Time of Evaluation: 09:50 - Subjective Subjective: PGY-4 GI Fellow Prog Note Pt lying in bed when seen this AM. She states she is doing well. Reports a few "small" bowel movements. Eager for heart cath on Thursday. 5 point ROS negative other than stated above Objective - Vital Signs/Intake and Output Vital Signs (last 24 hours): Temp Pulse Resp BP Pulse Ox 97.7 F 92 H 18 127/62 95 07/10/18 12:00 07/10/18 13:52 07/10/18 12:00 07/10/18 13:52 07/10/18 06:00 Intake and Output: 07/10/18 07/10/18 06:59 18:59 Intake Total 420 Output Total 300 Balance 120 - Medications Medications: Current Medications Albuterol/Ipratropium (Duoneb 3 Mg/0.5 Mg (3 Ml) Ud) 3 ml IH Q2H PRN PRN Reason: Shortness of Breath Albuterol/Ipratropium (Duoneb 3 Mg/0.5 Mg (3 Ml) Ud) 3 ml IH [id number] [facility] Last Admin: 07/10/18 09:24 Dose: 3 ml Aspirin (Aspirin Chewable) 81 mg PO DAILY [facility] Last Admin: 07/10/18 10:34 Dose: 81 mg Benzocaine/Menthol (Cepacol Sore Throat) 1 nancy MT Q2H PRN PRN Reason: Sore Throat Last Admin: 07/07/18 10:36 Dose: 1 nancy Clopidogrel Bisulfate (Plavix) 75 mg PO DAILY [facility] Last Admin: 07/10/18 10:33 Dose: 75 mg Diltiazem HCl (Cardizem) 60 mg PO TID [facility] Last Admin: 07/10/18 13:52 Dose: 60 mg Furosemide (Lasix) 40 mg IVP DAILY [facility] Last Admin: 07/10/18 10:32 Dose: 40 mg Glimepiride (Amaryl) 2 mg PO DAILY [facility] Last Admin: 07/10/18 10:34 Dose: 2 mg Home Med (Home Med) 2 unit PO DAILY [facility] Last Admin: 07/10/18 10:31 Dose: 2 unit Insulin Human Lispro (Humalog Med) 0 units SC ACHS [facility]; Protocol Last Admin: 07/10/18 12:33 Dose: 3 units Ondansetron HCl (Zofran Inj) 4 mg IVP Q6H PRN PRN Reason: Nausea/Vomiting Last Admin: 07/06/18 14:00 Dose: 4 mg Pantoprazole Sodium (Protonix Ec Tab) 40 mg PO 0630 [facility] Last Admin: 07/10/18 05:33 Dose: 40 mg Polyethylene Glycol (Miralax) 17 gm PO DAILY [facility] Last Admin: 07/10/18 10:33 Dose: 17 gm Potassium Chloride (K-Dur 20 Meq Er Tab) 20 meq PO BRK [facility] Last Admin: 07/10/18 08:18 Dose: 20 meq Sitagliptin Phosphate (Januvia) 50 mg PO DAILY [facility] Last Admin: 07/10/18 10:34 Dose: 50 mg - Labs Labs: 07/09/18 06:00 07/09/18 13:00 PT 18.1 SECONDS (9.4-12.5) H 07/10/18 05:30 INR 1.60 07/10/18 05:30 APTT 32.2 Seconds (26.9-38.3) 07/05/18 14:50 - Constitutional Appears: Non-toxic, No Acute Distress, Chronically Ill - Head Exam Head Exam: ATRAUMATIC, NORMAL INSPECTION - ENT Exam ENT Exam: Mucous Membranes Moist. absent: Mucous Membranes Dry - Respiratory Exam Respiratory Exam: NORMAL BREATHING PATTERN. absent: Accessory Muscle Use, Respiratory Distress - Cardiovascular Exam Cardiovascular Exam: REGULAR RHYTHM, RRR - GI/Abdominal Exam GI & Abdominal Exam: Distended (mildly), Soft, Normal Bowel Sounds. absent: Bruit, Firm, Guarding, Rigid, Tenderness, Mass, Organomegaly, Pulsatile Mass Assessment and Plan - Assessment and Plan (Free Text) Assessment: 87 year old female with a PMH of non-insulin dependent DM who presented to [facility] for excessive thirst, weakness, constipation, and 20 lbs weight gain since 06/04/18. GI was consulted due to elevated LFT's, which worsened despite initial improvement with diuretics. INR also increased, which is concerning for ischemic liver vs drug induced hepatitis. Echo showed reduced EF. - CT abd/pelv shows bilateral pleural effusions, small ascites - CXR shows pulmonary venous congestion - Abdominal US ascites, echogenic, nodular liver suggestive of hepatic cir rhosis, pulsatile flow in portal vein - Chest CT showed b/l pleural effusions, cardiomegaly, and ascites - Acute hepatitis panel negative - Abdomen Duplex, r/o Budd Chiari, portal vein thrombosis negative 1. Acute Liver Failure - Ischemic Liver vs. Drug-Induced vs Cardiac. Improved. 2. New-onset atrial fibrillation 3. HFrEF Plan: - Cont miralax daily - INR continues to improve s/p several doses of Vitamin K - Recommend d/c any non-essential medications; avoid hepatotoxic agents - A-fib management per cardio - Further medical management per primary - Trend CMP, CBC, INR - Cardio plans for heart cath on 07/12/[address] Muhammad. <Clement Muhammad V - Last Filed: 07/10/18 23:26> Objective - Vital Signs/Intake and Output Vital Signs (last 24 hours): Temp Pulse Resp BP Pulse Ox 97.8 F 78 18 116/69 95 07/10/18 17:40 07/10/18 22:00 07/10/18 17:40 07/10/18 17:40 07/10/18 17:40 Intake and Output: 07/10/18 07/11/18 18:59 06:59 Intake Total 960 Output Total 750 Balance 210 - Medications Medications: Current Medications Albuterol/Ipratropium (Duoneb 3 Mg/0.5 Mg (3 Ml) Ud) 3 ml IH Q2H PRN PRN Reason: Shortness of Breath Albuterol/Ipratropium (Duoneb 3 Mg/0.5 Mg (3 Ml) Ud) 3 ml IH [id number] [facility] Last Admin: 07/10/18 20:11 Dose: 3 ml Aspirin (Aspirin Chewable) 81 mg PO DAILY [facility] Last Admin: 07/10/18 10:34 Dose: 81 mg Benzocaine/Menthol (Cepacol Sore Throat) 1 nancy MT Q2H PRN PRN Reason: Sore Throat Last Admin: 07/07/18 10:36 Dose: 1 nancy Clopidogrel Bisulfate (Plavix) 75 mg PO DAILY [facility] Last Admin: 07/10/18 10:33 Dose: 75 mg Diltiazem HCl (Cardizem) 60 mg PO TID [facility] Last Admin: 07/10/18 17:34 Dose: 60 mg Furosemide (Lasix) 40 mg IVP DAILY [facility] Last Admin: 07/10/18 10:32 Dose: 40 mg Glimepiride (Amaryl) 2 mg PO DAILY [facility] Last Admin: 07/10/18 10:34 Dose: 2 mg Home Med (Home Med) 2 unit PO DAILY [facility] Last Admin: 07/10/18 10:31 Dose: 2 unit Insulin Human Lispro (Humalog Med) 0 units SC [facility]; Protocol Last Admin: 07/10/18 22:23 Dose: Not Given Ondansetron HCl (Zofran Inj) 4 mg IVP Q6H PRN PRN Reason: Nausea/Vomiting Last Admin: 07/06/18 14:00 Dose: 4 mg Pantoprazole Sodium (Protonix Ec Tab) 40 mg PO 0630 [facility] Last Admin: 07/10/18 05:33 Dose: 40 mg Polyethylene Glycol (Miralax) 17 gm PO DAILY [facility] Last Admin: 07/10/18 10:33 Dose: 17 gm Potassium Chloride (K-Dur 20 Meq Er Tab) 20 meq PO BRK [facility] Last Admin: 07/10/18 08:18 Dose: 20 meq Sitagliptin Phosphate (Januvia) 50 mg PO DAILY [facility] Last Admin: 07/10/18 10:34 Dose: 50 mg - Labs Labs: 07/09/18 06:00 07/09/18 13:00 PT 18.1 SECONDS (9.4-12.5) H 07/10/18 05:30 INR 1.60 07/10/18 05:30 APTT 32.2 Seconds (26.9-38.3) 07/05/18 14:50 Attending/Attestation - Attestation I have personally seen and examined this patient.: Yes I have fully participated in the care of the patient.: Yes I have reviewed all pertinent clinical information, including history, physical exam and plan: Yes Notes (Text): This is an addendum to GI progress report dictated by the GI Fellow. The patient was seen and examined earlier. Medical records, lab studies, imagings were reviewed. Last 24 hours events reviewed. Agreed with the above treatment plan as outlined in GI Fellow 's notes with the addition of the following 07/10/18 23:25
[2018-07-11] MEDS: Albuterol-Ipratrop 3 mg / 0.5 (3 ml) UD IH SCH ×4 (02:48→19:36)
[2018-07-11] MEDS: Pantoprazole 40 mg EC Tab PO SCH (05:30)
[2018-07-11 07:01] LABS: INR 1.42; PROTHROMBIN TIME 16.1 SECONDS (9.4-12.5)
[2018-07-11 07:05] LABS: BASO # 0.01 K/mm3 (0.0-2.0); BASO % 0.1 % (0.0-3.0); EOS # 0.1 (0.0-0.7); EOS % 1.1 % (1.5-5.0); HEMOGLOBIN 11.4 g/dL (12.0-16.0); LYMPH # 1.5 (1.2-3.4); LYMPH % 14.4 % (22.0-35.0); MEAN CELL VOLUME 77.6 fl (80.0-105.0); MEAN CORPUSCULAR HEMOGLOBIN 24.1 pg (25.0-35.0); MEAN CORPUSCULAR HGB CONC 31.1 g/dl (31.0-37.0); MEAN PLATELET VOLUME 10.1 fl (7.0-11.0); MONO # 1.9 (0.1-0.6); MONO % 17.7 % (1.0-6.0); RBC 4.73 10^6/uL (3.5-6.1); RED CELL DISTRIBUTION WIDTH 16.4 % (11.5-14.5); WHITE BLOOD COUNT 10.6 10^3/uL (4.5-11.0)
[2018-07-11 07:45] LABS: ALBUMIN 3.2 g/dL (3.0-4.8); ALT/SGPT 233 U/L (7-56); AST/SGOT 230 U/L (14-36); BLOOD UREA NITROGEN 24 mg/dL (7-21); CALCIUM 8.6 mg/dL (8.4-10.5); GFR NON-AFRICAN AMERICAN > 60
[2018-07-11] MEDS: Insulin Lispro (humaLOG) MEDIUM Coverage SC SCH ×4 (08:55→21:58)
[2018-07-11] MEDS: POLYETHYLENE GLYCOL 3350 17 GM/Dose PACKET PO SCH ×2 (09:25→18:13)
[2018-07-11] MEDS: ARMOUR THYROID 60 MG PO SCH (09:25)
[2018-07-11] MEDS: Potassium Chloride 20 mEq ER Tab PO SCH (09:32)
[2018-07-11] MEDS ORDERED: Magnesium Citrate Oral SOL (300 ml) PO ONE (14:22)
--- NOTE | 2018-07-11 18:04 | CP.PCM.PN ---
<Arvind Wolf - Last Filed: 07/11/18 17:52> Subjective - Date & Time of Evaluation Date of Evaluation: 07/11/18 Time of Evaluation: 11:30 - Subjective Subjective: PGY-4 GI Fellow Prog Note Pt lying in bed when seen this AM. States small BM with Miralax. No complaints. 5 point ROS negative other than stated above Objective - Vital Signs/Intake and Output Vital Signs (last 24 hours): Temp Pulse Resp BP Pulse Ox 97.8 F 88 18 115/43 L 94 L 07/11/18 17:42 07/11/18 17:42 07/11/18 17:42 07/11/18 17:42 07/11/18 06:00 Intake and Output: 07/11/18 07/11/18 06:59 18:59 Intake Total 1680 Output Total 1350 Balance 330 - Medications Medications: Current Medications Albuterol/Ipratropium (Duoneb 3 Mg/0.5 Mg (3 Ml) Ud) 3 ml IH Q2H PRN PRN Reason: Shortness of Breath Albuterol/Ipratropium (Duoneb 3 Mg/0.5 Mg (3 Ml) Ud) 3 ml IH [id number] [facility] Last Admin: 07/11/18 14:21 Dose: 3 ml Aspirin (Aspirin Chewable) 81 mg PO DAILY [facility] Last Admin: 07/11/18 09:31 Dose: 81 mg Benzocaine/Menthol (Cepacol Sore Throat) 1 nancy MT Q2H PRN PRN Reason: Sore Throat Last Admin: 07/07/18 10:36 Dose: 1 nancy Clopidogrel Bisulfate (Plavix) 75 mg PO DAILY [facility] Last Admin: 07/11/18 09:31 Dose: 75 mg Diltiazem HCl (Cardizem) 60 mg PO TID [facility] Last Admin: 07/11/18 13:51 Dose: 60 mg Furosemide (Lasix) 40 mg IVP DAILY [facility] Last Admin: 07/11/18 09:30 Dose: Not Given Glimepiride (Amaryl) 2 mg PO DAILY [facility] Last Admin: 07/11/18 09:31 Dose: 2 mg Home Med (Home Med) 2 unit PO DAILY [facility] Last Admin: 07/11/18 09:25 Dose: 2 unit Insulin Human Lispro (Humalog Med) 0 units SC [facility]; Protocol Last Admin: 07/11/18 16:55 Dose: 3 units Ondansetron HCl (Zofran Inj) 4 mg IVP Q6H PRN PRN Reason: Nausea/Vomiting Last Admin: 07/06/18 14:00 Dose: 4 mg Pantoprazole Sodium (Protonix Ec Tab) 40 mg PO 0630 [facility] Last Admin: 07/11/18 05:30 Dose: 40 mg Polyethylene Glycol (Miralax) 17 gm PO BID [facility] Potassium Chloride (K-Dur 20 Meq Er Tab) 20 meq PO BRK [facility] Last Admin: 07/11/18 09:32 Dose: 20 meq Sitagliptin Phosphate (Januvia) 50 mg PO DAILY [facility] Last Admin: 07/11/18 09:31 Dose: 50 mg - Labs Labs: 07/11/18 05:00 07/11/18 05:00 PT 16.1 SECONDS (9.4-12.5) H 07/11/18 05:00 INR 1.42 07/11/18 05:00 APTT 32.2 Seconds (26.9-38.3) 07/05/18 14:50 - Constitutional Appears: Well, No Acute Distress - Head Exam Head Exam: ATRAUMATIC, NORMAL INSPECTION - Eye Exam Eye Exam: EOMI. absent: Scleral icterus - ENT Exam ENT Exam: Mucous Membranes Moist. absent: Mucous Membranes Dry - Respiratory Exam Respiratory Exam: NORMAL BREATHING PATTERN. absent: Accessory Muscle Use, Respiratory Distress - GI/Abdominal Exam GI & Abdominal Exam: Soft. absent: Bruit, Distended, Firm, Guarding, Rigid, Tenderness, Diminished Bowel Sounds, Pulsatile Mass, Rebound Assessment and Plan - Assessment and Plan (Free Text) Assessment: 87 year old female with a PMH of non-insulin dependent DM who presented to [facility] for excessive thirst, weakness, constipation, and 20 lbs weight gain since 06/04/18. GI was consulted due to elevated LFT's, which worsened despite initial improvement with diuretics. INR also increased, which is concerning for ischemic liver vs drug induced hepatitis. Echo showed reduced EF. - CT abd/pelv shows bilateral pleural effusions, small ascites - CXR shows pulmonary venous congestion - Abdominal US ascites, echogenic, nodular liver suggestive of hepatic cirrhosis, pulsatile flow in portal vein - Chest CT showed b/l pleural effusions, cardiomegaly, and ascites - Acute hepatitis panel negative - Abdomen Duplex, r/o Budd Chiari, portal vein thrombosis negative 1. Acute Liver Failure - Ischemic Liver vs. Drug-Induced vs Cardiac. Improved. 2. New-onset atrial fibrillation 3. HFrEF 4. Cirrhosis: Likely cardiac vs QUISPE vs other. Plan further w/u post cardiac- cath, para? Plan: - Cont miralax, increase to BID - INR continues to improve s/p several doses of Vitamin K - D/c any non-essential medications; avoid hepatotoxic agents - A-fib management per cardio - Trend CMP, CBC, INR - Cardio plans for heart cath on 07/12/18 - Further medical management per primary Patient seen and discussed with Dr. Muhammad. <Clement Muhammad V - Last Filed: 07/11/18 23:26> Objective - Vital Signs/Intake and Output Vital Signs (last 24 hours): Temp Pulse Resp BP Pulse Ox 97.8 F 97 H 18 115/43 L 94 L 07/11/18 17:42 07/11/18 22:00 07/11/18 17:42 07/11/18 18:12 07/11/18 06:00 Intake and Output: 07/11/18 07/12/18 18:59 06:59 Intake Total 1260 Output Total 650 Balance 610 - Medications Medications: Current Medications Albuterol/Ipratropium (Duoneb 3 Mg/0.5 Mg (3 Ml) Ud) 3 ml IH Q2H PRN PRN Reason: Shortness of Breath Albuterol/Ipratropium (Duoneb 3 Mg/0.5 Mg (3 Ml) Ud) 3 ml IH [id number] [facility] Last Admin: 07/11/18 19:36 Dose: 3 ml Aspirin (Aspirin Chewable) 81 mg PO DAILY [facility] Last Admin: 07/11/18 09:31 Dose: 81 mg Benzocaine/Menthol (Cepacol Sore Throat) 1 nancy MT Q2H PRN PRN Reason: Sore Throat Last Admin: 07/07/18 10:36 Dose: 1 nancy Clopidogrel Bisulfate (Plavix) 75 mg PO DAILY [facility] Last Admin: 07/11/18 09:31 Dose: 75 mg Diltiazem HCl (Cardizem) 60 mg PO TID [facility] Last Admin: 07/11/18 18:12 Dose: 60 mg Furosemide (Lasix) 40 mg IVP DAILY [facility] Last Admin: 07/11/18 09:30 Dose: Not Given Glimepiride (Amaryl) 2 mg PO DAILY [facility] Last Admin: 07/11/18 09:31 Dose: 2 mg Home Med (Home Med) 2 unit PO DAILY [facility] Last Admin: 07/11/18 09:25 Dose: 2 unit Insulin Human Lispro (Humalog Med) 0 units SC [facility]; Protocol Last Admin: 07/11/18 21:58 Dose: Not Given Ondansetron HCl (Zofran Inj) 4 mg IVP Q6H PRN PRN Reason: Nausea/Vomiting Last Admin: 07/06/18 14:00 Dose: 4 mg Pantoprazole Sodium (Protonix Ec Tab) 40 mg PO 0630 [facility] Last Admin: 07/11/18 05:30 Dose: 40 mg Polyethylene Glycol (Miralax) 17 gm PO BID [facility] Last Admin: 07/11/18 18:13 Dose: Not Given Potassium Chloride (K-Dur 20 Meq Er Tab) 20 meq PO BRK [facility] Last Admin: 07/11/18 09:32 Dose: 20 meq Sitagliptin Phosphate (Januvia) 50 mg PO DAILY [facility] Last Admin: 07/11/18 09:31 Dose: 50 mg - Labs Labs: 07/11/18 05:00 07/11/18 05:00 PT 16.1 SECONDS (9.4-12.5) H 07/11/18 05:00 INR 1.42 07/11/18 05:00 APTT 32.2 Seconds (26.9-38.3) 07/05/18 14:50 Attending/Attestation - Attestation I have personally seen and examined this patient.: Yes I have fully participated in the care of the patient.: Yes I have reviewed all pertinent clinical information, including history, physical exam and plan: Yes Notes (Text): This is an addendum to GI progress report dictated by the GI Fellow. The patient was seen and examined earlier. Medical records, lab studies, imagings were reviewed. Last 24 hours events reviewed. Agreed with the above treatment plan as outlined in GI Fellow 's notes with the addition of the following Did have bowel movements with the laxative Clinically improving acute liver failure on the top of chronic liver disease cirrhosis Etiology of cirrhosis is unclear the differential diagnosis should include cardiac, Quispe to be considered follow-up hemochromatosis genetic marker study 07/11/18 23:25
--- NOTE | 2018-07-11 19:32 | PN ---
DATE: 07/11/2018 SUBJECTIVE: The patient is an 87-year-old, seen and examined, lying in bed, seems to be comfortable. Complaining of feeling constipated. Chest discomfort and shortness of breath is much better. No nausea. No vomiting. No diarrhea. No hemoptysis. No hematemesis. PHYSICAL EXAMINATION: VITAL SIGNS: She is afebrile. Pulse 98, respiration 20 and blood pressure 125/61. LUNGS: Bilateral fair airflow. No rhonchi or crackle. Decreased breath sound at bases. HEART: S1 and S2, audible. ABDOMEN: Soft, obese and nontender. No rebound. No guarding. NEUROLOGICAL: She is awake, alert, oriented and communicative. LABORATORY DATA: WBC 10.6, hemoglobin 11.4, hematocrit 36.7 and platelet 251. PT 16.1 and INR 1.42. Chemistry; sodium 130, potassium 4.3 chloride 95, CO2 of 31, BUN 24, creatinine 0.7, blood sugar of 208, AST 230, ALT 233 and alk phos 150. Blood cultures are negative. ASSESSMENT: 1. Cardiomyopathy, rule out underlying ischemia. 2. New onset atrial fibrillation. 3. Constipation. 4. History of hypertension. 5. [id number]-fthploxwr diabetes. 6. Hypothyroidism. PLAN: Currently, the patient is on Amaryl. She is on aspirin. She is on Cardizem. She is getting albuterol, give her dose of magnesium citrate. I will monitor her blood sugar. She is scheduled to have cardiac cath done in a.m. We will make further recommendation after we have cath report. Corey Palafox MD
[2018-07-12] MEDS: Albuterol-Ipratrop 3 mg / 0.5 (3 ml) UD IH SCH ×4 (01:22→21:27)
[2018-07-12 06:40] LABS: BASO # 0.01 K/mm3 (0.0-2.0); BASO % 0.1 % (0.0-3.0); EOS # 0.1 (0.0-0.7); EOS % 1.2 % (1.5-5.0); HEMOGLOBIN 11.2 g/dL (12.0-16.0); LYMPH # 2.1 (1.2-3.4); LYMPH % 19.7 % (22.0-35.0); MEAN CELL VOLUME 77.9 fl (80.0-105.0); MEAN CORPUSCULAR HEMOGLOBIN 23.8 pg (25.0-35.0); MEAN CORPUSCULAR HGB CONC 30.6 g/dl (31.0-37.0); MEAN PLATELET VOLUME 9.9 fl (7.0-11.0); MONO # 1.9 (0.1-0.6); MONO % 17.8 % (1.0-6.0); RBC 4.7 10^6/uL (3.5-6.1); RED CELL DISTRIBUTION WIDTH 16.6 % (11.5-14.5); WHITE BLOOD COUNT 10.6 10^3/uL (4.5-11.0)
[2018-07-12 06:45] LABS: INR 1.35; PROTHROMBIN TIME 15.3 SECONDS (9.4-12.5)
[2018-07-12 07:19] LABS: BLOOD UREA NITROGEN 19 mg/dL (7-21); CALCIUM 9.1 mg/dL (8.4-10.5); GFR NON-AFRICAN AMERICAN > 60
--- NOTE | 2018-07-12 07:21 | CP.PCM.PN ---
Subjective - Date & Time of Evaluation Date of Evaluation: 07/12/18 Time of Evaluation: 06:25 - Subjective Subjective: Lying in bed, Awake, alert, denies shortness of breath Reason for consultation and follow up:Cardiac evaluation of shortness of breath, new onset atrial fibrillation with rapid ventricular rate Seen and examined by me and Dr. Phan Objective - Vital Signs/Intake and Output Vital Signs (last 24 hours): Temp Pulse Resp BP Pulse Ox 97.8 F 95 H 18 116/54 L 95 07/12/18 06:00 07/12/18 06:00 07/12/18 06:00 07/12/18 06:00 07/12/18 06:00 Intake and Output: 07/12/18 07/12/18 06:59 18:59 Intake Total 1260 Output Total 1650 Balance -390 - Medications Medications: Current Medications Albuterol/Ipratropium (Duoneb 3 Mg/0.5 Mg (3 Ml) Ud) 3 ml IH Q2H PRN PRN Reason: Shortness of Breath Albuterol/Ipratropium (Duoneb 3 Mg/0.5 Mg (3 Ml) Ud) 3 ml IH [id number] [facility] Last Admin: 07/12/18 01:22 Dose: Not Given Aspirin (Aspirin Chewable) 81 mg PO DAILY [facility] Last Admin: 07/11/18 09:31 Dose: 81 mg Benzocaine/Menthol (Cepacol Sore Throat) 1 nancy MT Q2H PRN PRN Reason: Sore Throat Last Admin: 07/07/18 10:36 Dose: 1 nancy Clopidogrel Bisulfate (Plavix) 75 mg PO DAILY [facility] Last Admin: 07/11/18 09:31 Dose: 75 mg Diltiazem HCl (Cardizem) 60 mg PO TID [facility] Last Admin: 07/11/18 18:12 Dose: 60 mg Furosemide (Lasix) 40 mg IVP DAILY [facility] Last Admin: 07/11/18 09:30 Dose: Not Given Glimepiride (Amaryl) 2 mg PO DAILY [facility] Last Admin: 07/11/18 09:31 Dose: 2 mg Home Med (Home Med) 2 unit PO DAILY [facility] Last Admin: 07/11/18 09:25 Dose: 2 unit Insulin Human Lispro (Humalog Med) 0 units SC [facility]; Protocol Last Admin: 07/11/18 21:58 Dose: Not Given Ondansetron HCl (Zofran Inj) 4 mg IVP Q6H PRN PRN Reason: Nausea/Vomiting Last Admin: 07/06/18 14:00 Dose: 4 mg Pantoprazole Sodium (Protonix Ec Tab) 40 mg PO 0630 [facility] Last Admin: 07/11/18 05:30 Dose: 40 mg Polyethylene Glycol (Miralax) 17 gm PO BID [facility] Last Admin: 07/11/18 18:13 Dose: Not Given Potassium Chloride (K-Dur 20 Meq Er Tab) 20 meq PO BRK [facility] Last Admin: 07/11/18 09:32 Dose: 20 meq Sitagliptin Phosphate (Januvia) 50 mg PO DAILY [facility] Last Admin: 07/11/18 09:31 Dose: 50 mg - Labs Labs: 07/12/18 06:20 07/12/18 06:20 PT 15.3 SECONDS (9.4-12.5) H 07/12/18 06:20 INR 1.35 07/12/18 06:20 APTT 32.2 Seconds (26.9-38.3) 07/05/18 14:50 - Constitutional Appears: Non-toxic, No Acute Distress - Head Exam Head Exam: NORMAL INSPECTION, NORMOCEPHALIC - Eye Exam Eye Exam: Normal appearance Pupil Exam: NORMAL ACCOMODATION - ENT Exam ENT Exam: Mucous Membranes Moist, Normal Exam - Respiratory Exam Respiratory Exam: Decreased Breath Sounds, Clear to Ausculation Bilateral, NORMAL BREATHING PATTERN - Cardiovascular Exam Cardiovascular Exam: Irregular Rhythm, +S1, +S2 Additional comments: Telemetry atrial fib 80-90's - GI/Abdominal Exam GI & Abdominal Exam: Soft, Normal Bowel Sounds - Extremities Exam Extremities Exam: Full ROM, Normal Capillary Refill - Neurological Exam Neurological Exam: Alert, Awake, Oriented x3 - Psychiatric Exam Psychiatric exam: Normal Affect, Normal Mood - Skin Skin Exam: Dry, Normal Color, Warm Assessment and Plan - Assessment and Plan (Free Text) Assessment: An 87 year old female who was brought to the ER due to shortness of breath and generalized weakness. She was also in rapid atrial fibrillation upon admission. History of diabetes, thyroid goiter,hypothyroidism, parathyroidectomy, thyroidectomy, cholecystectomy. Patient was recently treated for a 3 week history of constipation by Dr. Palafox with Miralax and Linzess. Elevated liver function test. CT scan of abdomen showed moderate bilateral pleural effusion, bilateral atelectasis, partial cardiomegaly. Echo done- Septal and biatrial hyperthropy, moderately impaired systolic funstion, LVEF 30-35%, mild AR, moderate MR?TR RVSP 26 mmHg, extremely underestimating due to cofiguration of TR jet.no pericardial effusion. Hold anticoagulation for atrial fibrillation due to elevated LFT's. Heart rate controlled. For Cardiac cath. Elevated INR. Vitamin K given. Cardiac cath today. LFT's improved and better. INR within normal limits. Plan: For cardiac catheterization today LFT's improved No distress, denies shortness of breath Heart rate controlled Blood pressure controlled On Cardizem 60 mg TID, Lovenox 80 mg BID, Lasix 40 mg daily, Continue antibiotics as ordered Continue current treatment Continue current medications INR today WNL Will anticoagulate for Atrial fib after cardiac cath Further recommendations after cardiac cath Will follow up Plan and treatment discussed with Dr. Phan
[2018-07-12] MEDS: Pantoprazole 40 mg EC Tab PO SCH (07:45)
[2018-07-12] MEDS: Insulin Lispro (humaLOG) MEDIUM Coverage SC SCH ×4 (08:11→21:56)
[2018-07-12 08:51] LABS: ALB/GLOB RATIO 0.9 (1.1-1.8); ALBUMIN 3.2 g/dL (3.0-4.8)
[2018-07-12] MEDS ORDERED: Lidocaine 2% Inj (20ml) ONE (10:55)
[2018-07-12] MEDS ORDERED: Midazolam 2 MG/2 ML VIAL ONE (11:11)
[2018-07-12] MEDS ORDERED: Sodium Chloride 0.9% 1,000 ML IV SCH (12:00)
--- NOTE | 2018-07-12 12:48 | CPOSTOP ---
DATE: 07/12/2018 CARDIOVASCULAR LAB POSTPROCEDURE NOTE PHYSICIAN: Idania Phan MD HUMAN RESOURCES TECHNICIAN: SUNITA Magdaleno. TYPE OF ANESTHESIA: Moderate conscious sedation. Total 1 mg of Versed and 50 of fentanyl given. PRE-PROCEDURE DIAGNOSES: Unstable angina, new onset of atrial fibrillation and new onset of congestive heart failure. PROCEDURE PERFORMED: Left heart catheterization. FINDINGS: Mild nonobstructive coronary artery disease. FINAL DIAGNOSIS: Nonobstructive coronary artery disease. POST PROCEDURE CONDITION: The patient's condition is stable. VASCULAR ACCESS SITE: Right femoral artery. CLOSURE DEVICE: Angio-Seal. TOTAL RADIATION DOSE: 5971.9 milligray unit. TOTAL FLUORO TIME: 1.5 minutes. Idania Phan MD
[2018-07-12] MEDS: POLYETHYLENE GLYCOL 3350 17 GM/Dose PACKET PO SCH ×2 (13:14→18:05)
--- NOTE | 2018-07-12 13:23 | CP.PCM.PN ---
<Александр Flores - Last Filed: 07/12/18 13:15> Subjective - Date & Time of Evaluation Date of Evaluation: 07/12/18 Time of Evaluation: 13:15 - Subjective Subjective: GI Progress Note for Dr. Muhammad Patient seen and examined at bedside. No acute overnight events. Patient is to undergo cardiac catherization today due to new-onset atrial fibrillation. Patient denies CP, SOB, n/v/d, abdominal pain, fever, chills, AGUSTIN, or dizziness. Objective - Vital Signs/Intake and Output Vital Signs (last 24 hours): Temp Pulse Resp BP Pulse Ox 98.2 F 88 19 144/72 95 07/12/18 12:15 07/12/18 12:45 07/12/18 12:45 07/12/18 12:45 07/12/18 06:00 Intake and Output: 07/12/18 07/12/18 06:59 18:59 Intake Total 1260 Output Total 1650 Balance -390 - Medications Medications: Current Medications Albuterol/Ipratropium (Duoneb 3 Mg/0.5 Mg (3 Ml) Ud) 3 ml IH Q2H PRN PRN Reason: Shortness of Breath Albuterol/Ipratropium (Duoneb 3 Mg/0.5 Mg (3 Ml) Ud) 3 ml IH [id number] [facility] Last Admin: 07/12/18 07:23 Dose: 3 ml Aspirin (Aspirin Chewable) 81 mg PO DAILY [facility] Last Admin: 07/12/18 08:43 Dose: 81 mg Benzocaine/Menthol (Cepacol Sore Throat) 1 nancy MT Q2H PRN PRN Reason: Sore Throat Last Admin: 07/07/18 10:36 Dose: 1 nancy Clopidogrel Bisulfate (Plavix) 75 mg PO DAILY [facility] Stop: 07/12/18 23:59 Last Admin: 07/12/18 08:42 Dose: 75 mg Diltiazem HCl (Cardizem) 60 mg PO TID [facility] Last Admin: 07/11/18 18:12 Dose: 60 mg Furosemide (Lasix) 40 mg IVP DAILY [facility] Last Admin: 07/11/18 09:30 Dose: Not Given Glimepiride (Amaryl) 2 mg PO DAILY [facility] Last Admin: 07/11/18 09:31 Dose: 2 mg Home Med (Home Med) 2 unit PO DAILY [facility] Last Admin: 07/11/18 09:25 Dose: 2 unit Sodium Chloride (Sodium Chloride 0.9%) 1,000 mls @ 100 mls/hr IV .Q10H [facility] Stop: 07/12/18 17:00 Last Admin: 07/12/18 12:28 Dose: 100 mls/hr Insulin Human Lispro (Humalog Med) 0 units SC ACHS [facility]; Protocol Last Admin: 07/12/18 08:11 Dose: Not Given Ondansetron HCl (Zofran Inj) 4 mg IVP Q6H PRN PRN Reason: Nausea/Vomiting Last Admin: 07/06/18 14:00 Dose: 4 mg Pantoprazole Sodium (Protonix Ec Tab) 40 mg PO 0630 [facility] Last Admin: 07/12/18 07:45 Dose: Not Given Polyethylene Glycol (Miralax) 17 gm PO BID [facility] Last Admin: 07/11/18 18:13 Dose: Not Given Potassium Chloride (K-Dur 20 Meq Er Tab) 20 meq PO BRK [facility] Last Admin: 07/11/18 09:32 Dose: 20 meq Sitagliptin Phosphate (Januvia) 50 mg PO DAILY [facility] Last Admin: 07/12/18 10:00 Dose: Not Given - Labs Labs: 07/12/18 06:20 07/12/18 06:20 PT 15.3 SECONDS (9.4-12.5) H 07/12/18 06:20 INR 1.35 07/12/18 06:20 APTT 32.2 Seconds (26.9-38.3) 07/05/18 14:50 - Constitutional Appears: No Acute Distress - Head Exam Head Exam: NORMAL INSPECTION - Eye Exam Eye Exam: Normal appearance Pupil Exam: NORMAL ACCOMODATION - ENT Exam ENT Exam: Mucous Membranes Moist - Neck Exam Neck Exam: Normal Inspection - Respiratory Exam Respiratory Exam: Clear to Ausculation Bilateral. absent: Rales, Rhonchi, Wheezes - Cardiovascular Exam Cardiovascular Exam: +S1, +S2. absent: Clicks, Diastolic murmur, Gallop, Rubs, Murmur - GI/Abdominal Exam GI & Abdominal Exam: Soft. absent: Distended, Guarding, Tenderness, Rebound - Extremities Exam Extremities Exam: Normal Inspection - Back Exam Back Exam: NORMAL INSPECTION - Neurological Exam Neurological Exam: Alert, Awake, Oriented x3 - Skin Skin Exam: Normal Color, Warm Assessment and Plan - Assessment and Plan (Free Text) Assessment: 87 year old female with a PMH of non-insulin dependent DM who presented to [facility] for excessive thirst, weakness, constipation, and 20 lbs weight gain since 06/04. GI was consulted due to elevated LFT's, which worsened despite initial improvement with diuretics. INR also increased, which is concerning for ischemic liver vs drug induced hepatitis. Echo showed reduced EF. - CT abd/pelv shows bilateral pleural effusions, small ascites - CXR shows pulmonary venous congestion - Abdominal US ascites, echogenic, nodular liver suggestive of hepatic cirrhosis, pulsatile flow in portal vein - Chest CT showed b/l pleural effusions, cardiomegaly, and ascites - Acute hepatitis panel negative - Abdomen Duplex, r/o Budd Chiari, portal vein thrombosis negative 1. Acute Liver Failure - Ischemic Liver vs. Drug-Induced vs Cardiac. Improving. 2. New-onset atrial fibrillation 3. HFrEF 4. Cirrhosis: Likely cardiac vs QUISPE vs other Plan: - F/u hereditary hemochromatosis DNA - Cont miralax BID - INR continues to improve s/p several doses of Vitamin K - D/c any non-essential medications; avoid hepatotoxic agents - A-fib management per cardio - Trend CMP, CBC, INR - S/p cardiac cath today - Further medical management per primary Patient seen and discussed with Dr. Muhammad. Tree Flores DO PGY2 <Clement Muhammad V - Last Filed: 07/12/18 23:54> Objective - Vital Signs/Intake and Output Vital Signs (last 24 hours): Temp Pulse Resp BP Pulse Ox 97.5 F L 88 20 138/58 L 95 07/12/18 18:19 07/12/18 18:19 07/12/18 18:19 07/12/18 18:19 07/12/18 06:00 Intake and Output: 07/12/18 07/13/18 18:59 06:59 Intake Total 1260 Output Total 600 Balance 660 - Medications Medications: Current Medications Albuterol/Ipratropium (Duoneb 3 Mg/0.5 Mg (3 Ml) Ud) 3 ml IH Q2H PRN PRN Reason: Shortness of Breath Albuterol/Ipratropium (Duoneb 3 Mg/0.5 Mg (3 Ml) Ud) 3 ml IH [id number] [facility] Last Admin: 07/12/18 21:27 Dose: Not Given Apixaban (Eliquis) 2.5 mg PO BID [facility]; Protocol Aspirin (Aspirin Chewable) 81 mg PO DAILY [facility] Last Admin: 07/12/18 13:15 Dose: Not Given Benzocaine/Menthol (Cepacol Sore Throat) 1 nancy MT Q2H PRN PRN Reason: Sore Throat Last Admin: 07/07/18 10:36 Dose: 1 nancy Clopidogrel Bisulfate (Plavix) 75 mg PO DAILY [facility] Stop: 07/12/18 23:59 Last Admin: 07/12/18 13:16 Dose: Not Given Diltiazem HCl (Cardizem) 60 mg PO TID [facility] Last Admin: 07/12/18 17:44 Dose: 60 mg Furosemide (Lasix) 40 mg IVP DAILY [facility] Last Admin: 07/12/18 17:44 Dose: 40 mg Glimepiride (Amaryl) 2 mg PO DAILY [facility] Last Admin: 07/12/18 13:15 Dose: Not Given Home Med (Home Med) 2 unit PO DAILY [facility] Last Admin: 07/12/18 13:41 Dose: 2 unit Insulin Human Lispro (Humalog Med) 0 units SC [facility]; Protocol Last Admin: 07/12/18 21:56 Dose: Not Given Ondansetron HCl (Zofran Inj) 4 mg IVP Q6H PRN PRN Reason: Nausea/Vomiting Last Admin: 07/06/18 14:00 Dose: 4 mg Pantoprazole Sodium (Protonix Ec Tab) 40 mg PO 0630 [facility] Last Admin: 07/12/18 07:45 Dose: Not Given Polyethylene Glycol (Miralax) 17 gm PO BID [facility] Last Admin: 07/12/18 18:05 Dose: 17 gm Potassium Chloride (K-Dur 20 Meq Er Tab) 20 meq PO BRK [facility] Last Admin: 07/12/18 13:40 Dose: 20 meq Sitagliptin Phosphate (Januvia) 50 mg PO DAILY [facility] Last Admin: 07/12/18 10:00 Dose: Not Given - Labs Labs: 07/12/18 06:20 07/12/18 06:20 PT 15.3 SECONDS (9.4-12.5) H 07/12/18 06:20 INR 1.35 07/12/18 06:20 APTT 32.2 Seconds (26.9-38.3) 07/05/18 14:50 Attending/Attestation - Attestation I have personally seen and examined this patient.: Yes I have fully participated in the care of the patient.: Yes I have reviewed all pertinent clinical information, including history, physical exam and plan: Yes Notes (Text): This is an addendum to GI followup report dictated by the Geology Faculty Member. The patient was seen and evaluated earlier. Medical records, lab studies, imagings were reviewed. Last 24 hours events reviewed. Agreed with the above treatment plan as outlined in Geology Faculty Member 's notes with the addition of the [id number] 23:53
[2018-07-12] MEDS: Potassium Chloride 20 mEq ER Tab PO SCH (13:40)
[2018-07-12] MEDS: ARMOUR THYROID 60 MG PO SCH (13:41)
--- NOTE | 2018-07-12 17:13 | PN ---
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 Sage any chest pain or shortness of breath. She states she feels well. PHYSICAL EXAMINATION: VITAL SIGNS: She is afebrile, pulse 96, respirations 18, blood pressure 116/54. LUNGS: Bilateral decreased breath sounds at bases. HEART: S1 and S2 audible. ABDOMEN: Soft, obese, nontender. No rebound. No guarding. NEUROLOGIC: The patient is awake, alert, oriented. Able to communicate. EXTREMITIES: Bilateral legs, no edema. LABORATORY DATA: WBC is 10.6, hemoglobin 11.2, hematocrit 36, platelets of 230. PT 15.3, INR 1.35. Chemistry: Sodium 133, potassium 4, chloride 95, CO2 32, BUN 19, creatinine 0.7, total bili 3.2, AST 153, ALT 201. ASSESSMENT: 1. Cardiomyopathy, rule out underlying ischemia. 2. History of hypertension. 3. Noninsulin-dependent diabetes. 4. Abnormal liver function tests secondary to probably cardiac cirrhosis and passive congestion. 5. Bilateral pleural effusion. 6. Hypothyroidism. 7. Status post parathyroidectomy and thyroidectomy. PLAN: So plan is, the patient is undergoing cardiac cath. Currently, she is on Cardizem 60 mg three times a day. After cardiac cath, she will be started on anticoagulant for her atrial fibrillation and follow up her electrolytes, CBC and CMP in a.m. and make further recommendation depending on cath report. Corey Palafox MD
--- NOTE | 2018-07-12 19:35 | CARD ---
APPROVED REPORT Date of service: 07/12/2018 Procedure(s) performed: Left Heart Catheterization HISTORY The patient is a 87 year-old female with a history of : peripheral vascular disease, diabetes mellitus with oral treatment , dyslipidemia , Admitted with ACS, A fib RVR , new onset of CHF and acute Hepatic injury and coagulopathy with INR 2.8 without anticoagulation and bilirubin 6.0. INDICATION The indication(s) include : unstable angina . CASE TECHNIQUE The patient was brought urgently to the Cardiac Catheterization Laboratory in a fasting state and was prepped and draped in a sterile manner. The right femoral groin was infiltrated with 2% Lidocaine subcutaneous anesthesia. A 6 Fr x 11 cm Jazzmine sheath was inserted into the right femoral artery without difficulty. Coronary angiography was performed using coronary diagnostic catheters. The left coronary system was accessed and visualized with a Diagnostic , 5F JL 4 CATH DXT 100 CM catheter. The right coronary system was accessed and visualized with a Diagnostic ,5F JR 4 CATH DXT 100 CM catheter. The left ventricle was accessed and visualized with a 5F PIGTAIL 145 CATH DXT 110 CM catheter. Left ventricular/Aortic Valve gradient assessed on pullback. Left ventriculogram was performed in [place] projection. Pre-demployment femoral angiogram was performed . Closure device was deployed with a 6 Fr Angio-Seal without any complications. The patient tolerated the procedure well and there were no complications associated with the procedure. Vessel Analysis The patient's coronary anatomy is right dominant. The left main coronary artery is a medium size vessel with intimal irregularities and without significant stenosis. The left main bifurcates to the left anterior descending and circumflex. The left anterior descending artery is a medium size vessel with diffuse calcification noted throughout this vessel and without significant stenosis. There is a 55% stenosis in the very distal segment. Diffusely diseased like thread, but non focal flow limiting stenosis. The first diagonal branch is a small size vessel with intimal irregularities and without significant stenosis. The circumflex artery is a medium size vessel with diffuse calcification noted throughout this vessel and without significant stenosis. The first obtuse marginal branch is a medium size vessel with diffuse calcification noted throughout this vessel and without significant stenosis. The right coronary artery is a large size vessel with intimal irregularities. The right posterior descending artery is a large size vessel without significant stenosis. The right posterolateral branch is a large size vessel with intimal irregularities and without significant stenosis. Left Ventricle The left ventricle is normal in size with near normal contractility. The left ventricular ejection fraction is estimated to be 55%. The left ventricular end diastolic pressure is 12 mmHg. There was no gradient across the aortic valve upon pullback. 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 Preserved LV Fx. EF-55%, EDP-12 mm of Hg. ( A fib). Possibly these Acute Event secodary To Vral infection involving Multi organ dysfunction, now in recovery. Recommendations Aggressive Medical TherapyCardiac Risk Reduction Program Weight Loss Reduction Program Resume Eliquis in next 24-36 hours post cath NITO Cardioversion on 08/05/2018 at 11:00am MUGA scan to assess LV EF%. CC; Dr. Palafox
[2018-07-13] MEDS: Albuterol-Ipratrop 3 mg / 0.5 (3 ml) UD IH SCH ×3 (03:19→15:19)
--- NOTE | 2018-07-13 06:40 | CP.PCM.PN ---
Subjective - Date & Time of Evaluation Date of Evaluation: 07/13/18 Time of Evaluation: 06:25 - Subjective Subjective: Awake, alert, denies shortness of breath Reason for consultation and follow up:Cardiac evaluation of shortness of breath, new onset atrial fibrillation with rapid ventricular rate Seen and examined by me and Dr. Phan Objective - Vital Signs/Intake and Output Vital Signs (last 24 hours): Temp Pulse Resp BP Pulse Ox 97.5 F L 116 H 20 138/58 L 95 07/12/18 18:19 07/13/18 05:48 07/12/18 18:19 07/12/18 18:19 07/12/18 06:00 Intake and Output: 07/12/18 07/13/18 18:59 06:59 Intake Total 1260 Output Total 600 Balance 660 - Medications Medications: Current Medications Albuterol/Ipratropium (Duoneb 3 Mg/0.5 Mg (3 Ml) Ud) 3 ml IH Q2H PRN PRN Reason: Shortness of Breath Albuterol/Ipratropium (Duoneb 3 Mg/0.5 Mg (3 Ml) Ud) 3 ml IH [id number] [facility] Last Admin: 07/13/18 03:19 Dose: Not Given Apixaban (Eliquis) 2.5 mg PO BID [facility]; Protocol Aspirin (Aspirin Chewable) 81 mg PO DAILY [facility] Last Admin: 07/12/18 13:15 Dose: Not Given Benzocaine/Menthol (Cepacol Sore Throat) 1 nancy MT Q2H PRN PRN Reason: Sore Throat Last Admin: 07/07/18 10:36 Dose: 1 nancy Diltiazem HCl (Cardizem) 60 mg PO TID [facility] Last Admin: 07/12/18 17:44 Dose: 60 mg Furosemide (Lasix) 40 mg IVP DAILY [facility] Last Admin: 07/12/18 17:44 Dose: 40 mg Glimepiride (Amaryl) 2 mg PO DAILY [facility] Last Admin: 07/12/18 13:15 Dose: Not Given Home Med (Home Med) 2 unit PO DAILY [facility] Last Admin: 07/12/18 13:41 Dose: 2 unit Insulin Human Lispro (Humalog Med) 0 units SC [facility]; Protocol Last Admin: 07/12/18 21:56 Dose: Not Given Ondansetron HCl (Zofran Inj) 4 mg IVP Q6H PRN PRN Reason: Nausea/Vomiting Last Admin: 07/06/18 14:00 Dose: 4 mg Pantoprazole Sodium (Protonix Ec Tab) 40 mg PO 0630 [facility] Last Admin: 07/12/18 07:45 Dose: Not Given Polyethylene Glycol (Miralax) 17 gm PO BID [facility] Last Admin: 07/12/18 18:05 Dose: 17 gm Potassium Chloride (K-Dur 20 Meq Er Tab) 20 meq PO BRK [facility] Last Admin: 07/12/18 13:40 Dose: 20 meq Sitagliptin Phosphate (Januvia) 50 mg PO DAILY [facility] Last Admin: 07/12/18 10:00 Dose: Not Given - Labs Labs: 07/12/18 06:20 07/12/18 06:20 PT 15.3 SECONDS (9.4-12.5) H 07/12/18 06:20 INR 1.35 07/12/18 06:20 APTT 32.2 Seconds (26.9-38.3) 07/05/18 14:50 - Constitutional Appears: Non-toxic, No Acute Distress - Head Exam Head Exam: NORMAL INSPECTION, NORMOCEPHALIC - Eye Exam Eye Exam: Normal appearance Pupil Exam: NORMAL ACCOMODATION - ENT Exam ENT Exam: Mucous Membranes Moist, Normal Exam - Respiratory Exam Respiratory Exam: Decreased Breath Sounds, Clear to Ausculation Bilateral, N ORMAL BREATHING PATTERN - Cardiovascular Exam Cardiovascular Exam: Irregular Rhythm, +S1, +S2 Additional comments: Telemetry Atrial fibrillation 90's - GI/Abdominal Exam GI & Abdominal Exam: Soft, Normal Bowel Sounds - Extremities Exam Extremities Exam: Full ROM, Normal Capillary Refill - Neurological Exam Neurological Exam: Alert, Awake, Oriented x3 - Psychiatric Exam Psychiatric exam: Normal Affect, Normal Mood - Skin Skin Exam: Dry, Normal Color, Warm Assessment and Plan - Assessment and Plan (Free Text) Assessment: An 87 year old female who was brought to the ER due to shortness of breath and generalized weakness. She was also in rapid atrial fibrillation upon admission. History of diabetes, thyroid goiter,hypothyroidism, parathyroidectomy, thyroidectomy, cholecystectomy. Patient was recently treated for a 3 week history of constipation by Dr. Palafox with Miralax and Linzess. Elevated liver function test. CT scan of abdomen showed moderate bilateral pleural effusion, bilateral atelectasis, partial cardiomegaly. Echo done- Septal and biatrial hyp erthropy, moderately impaired systolic funstion, LVEF 30-35%, mild AR, moderate MR?TR RVSP 26 mmHg, extremely underestimating due to cofiguration of TR jet.no pericardial effusion. Hold anticoagulation for atrial fibrillation due to elevated LFT's. Heart rate controlled. Elevated INR. Vitamin K given. LFT's improved and better. INR within normal limits.Post cardiac catheterization yesterday. Non-obstructive coronary artery disease, limited to distal LAD diffusely diseased like thread. Scheduled for NITO with cardioversion of atrial fibrillation on 08/05/18. Will start Eliquis tomorrow. Plan: Post cardiac catheterization yesterday,Non-obstructive coronary artery disease, limited to distal LAD diffusely diseased like thread. Scheduled for NITO with cardioversion of atrial fibrillation on 08/05/18 (out patient) Will start Eliquis tomorrow LFT's improved No distress, denies shortness of breath Heart rate controlled Blood pressure controlled On Cardizem 60 mg TID, Lovenox 80 mg BID, Lasix 40 mg daily, Continue antibiotics as ordered Continue current treatment Continue current medications Will follow up Plan and treatment discussed with Dr. Phan
[2018-07-13] MEDS: Pantoprazole 40 mg EC Tab PO SCH (06:57)
[2018-07-13 07:00] VITALS: O2SAT 96
[2018-07-13 07:16] LABS: BASO # 0.01 K/mm3 (0.0-2.0); BASO % 0.1 % (0.0-3.0); EOS # 0.1 (0.0-0.7); EOS % 1.2 % (1.5-5.0); LYMPH % 20.9 % (22.0-35.0); MEAN CELL VOLUME 78.4 fl (80.0-105.0); MEAN CORPUSCULAR HEMOGLOBIN 23.6 pg (25.0-35.0); MEAN CORPUSCULAR HGB CONC 30.1 g/dl (31.0-37.0); MEAN PLATELET VOLUME 9.7 fl (7.0-11.0); MONO # 1.9 (0.1-0.6); MONO % 19.3 % (1.0-6.0); RBC 4.67 10^6/uL (3.5-6.1); RED CELL DISTRIBUTION WIDTH 16.9 % (11.5-14.5); WHITE BLOOD COUNT 9.7 10^3/uL (4.5-11.0)
[2018-07-13 07:21] LABS: INR 1.35; PROTHROMBIN TIME 15.3 SECONDS (9.4-12.5)
[2018-07-13] MEDS: Potassium Chloride 20 mEq ER Tab PO SCH (08:02)
[2018-07-13] MEDS: Insulin Lispro (humaLOG) MEDIUM Coverage SC SCH ×3 (08:02→17:44)
[2018-07-13 08:03] LABS: ALBUMIN 3.2 g/dL (3.0-4.8); ALT/SGPT 158 U/L (7-56); AST/SGOT 104 U/L (14-36); BLOOD UREA NITROGEN 20 mg/dL (7-21); CALCIUM 9.1 mg/dL (8.4-10.5); GFR NON-AFRICAN AMERICAN > 60
[2018-07-13] MEDS: ARMOUR THYROID 60 MG PO SCH (10:47)
[2018-07-13] MEDS: POLYETHYLENE GLYCOL 3350 17 GM/Dose PACKET PO SCH ×2 (10:48→17:37)
[2018-07-13] MEDS ORDERED: diltiaZEM 180 mg/24 Hours CD Cap PO SCH (12:00)
--- NOTE | 2018-07-13 14:59 | PN ---
DATE: 07/13/2018 SUBJECTIVE: The patient is 87 years old, seen and examined, lying in bed, seems to be comfortable, went for MUGA scan. We are awaiting results. No chest pain or shortness of breath. PHYSICAL EXAMINATION VITAL SIGNS: She is afebrile. Pulse 102, respirations 20, blood pressure 132/84. LUNGS: Bilateral fair airflow, decreased at bases. HEART: S1 and S2 audible. ABDOMEN: Soft, nontender, obese. No hepatosplenomegaly. NEUROLOGIC: She is awake, alert, oriented, able to communicate. EXTREMITIES: Bilateral legs, no edema. LABORATORY DATA: WBC 9.7, hemoglobin 11, hematocrit 36, platelet 225. PT 15.3, INR 1.35. Chemistry, sodium 134, potassium 4.2, chloride 97, CO2 of 32, BUN 20, creatinine 0.6, blood sugar of 161, total bili 2.8, AST 104, ALT 158, alk phos is 151. Her blood cultures are negative. ASSESSMENT/PLAN: 1. New onset of atrial fibrillation. 2. Status post cardiac cath, seems to be unremarkable. 3. Nonocclusive coronaries. 4. Cardiomyopathy with ejection fraction of 35%. 5. Non-insulin dependent diabetes. 6. Hypothyroidism. PLAN: The patient is currently on oral hypoglycemics. I will change her Cardizem to Cardizem CD. Anesthesia evaluation has been requested. If the patient is accepted in TCU, she can be transferred to TCU today. Cardiology input noted and appreciated. The patient is scheduled to have NITO cardioversion done on 08/05/2018. For now, she has been started on Eliquis. We will monitor her blood sugar. Continue her on diuretics. We will follow up the patient in a.m. Corey Palafox MD
[2018-07-13 15:23] VITALS: PULSE 100
[2018-07-13 18:47] VITALS: BP 124/67; RESP 20; TEMP 98.1
--- NOTE | 2018-07-13 20:22 | CARD ---
APPROVED REPORT Date of service: 07/13/2018 INDICATION Ascites Congestive Heart Failure PROCEDURE The above named patient recieved 27.9 millicuries of Tc99m tagged red blood cells intravenously. After achieving equilibrium, gated imaging of 16/frame/cycle was performed utillizing Gamma camera interfaced with a digital computer and gated device. Gated imaging was then performed in the left anterior oblique, anterior, and the left lateral projections. Findings Calculated LV Ejection Fraction is 63%. Impressions Calculated Ejection Fraction is 63 %.
== END 2018-07-13 19:41 | DRG 286 ==
LOC: ED 12:59 → ERH 15:52 → 3RNO 19:46 → 2RNO 07-06 01:32 → 2RSO 07-12 11:55 → SDAINP 07-12 11:58 → 2RSO 07-12 12:12
PROVIDERS: ADMIT Internal Medicine; ATTEND Internal Medicine
PROC: 4A023N7 Measurement of Cardiac Sampling and Pressure, Left Heart, Percutaneous Approach (ICD-10-PCS; principal; 2018-07-12)
PROC: B2111ZZ Fluoroscopy of Multiple Coronary Arteries using Low Osmolar Contrast (ICD-10-PCS; 2018-07-12)
PROC: B2151ZZ Fluoroscopy of Left Heart using Low Osmolar Contrast (ICD-10-PCS; 2018-07-12)
DX: I11.0 Hypertensive heart disease with heart failure (principal); K72.00 Acute and subacute hepatic failure without coma; J98.11 Atelectasis; R18.8 Other ascites; I48.91 Unspecified atrial fibrillation; R94.5 Abnormal results of liver function studies; E89.0 Postprocedural hypothyroidism; K59.00 Constipation, unspecified; I50.20 Unspecified systolic (congestive) heart failure; I42.9 Cardiomyopathy, unspecified; E87.5 Hyperkalemia; R79.1 Abnormal coagulation profile; E11.51 Type 2 diabetes mellitus with diabetic peripheral angiopathy without gangrene; E78.5 Hyperlipidemia, unspecified; I25.110 Atherosclerotic heart disease of native coronary artery with unstable angina pectoris; K74.60 Unspecified cirrhosis of liver; Z90.49 Acquired absence of other specified parts of digestive tract; Z80.0 Family history of malignant neoplasm of digestive organs; Z88.6 Allergy status to analgesic agent; Z88.5 Allergy status to narcotic agent; Z98.42 Cataract extraction status, left eye; Z98.41 Cataract extraction status, right eye; Z87.892 Personal history of anaphylaxis

== ENCOUNTER 2018-07-13 19:41 | Inpatient (IN) | payer OTHER ==
[2018-07-13] MEDS ORDERED: Benzocaine/Menthol (Cepacol) Lozenge MT PRN (20:38)
[2018-07-13 23:13] VITALS: BMI 35.5
[2018-07-13] MEDS: Albuterol-Ipratrop 3 mg / 0.5 (3 ml) UD IH PRN (23:37)
[2018-07-14] MEDS: Albuterol-Ipratrop 3 mg / 0.5 (3 ml) UD IH SCH ×2 (01:27→08:15)
[2018-07-14] MEDS ORDERED: Pantoprazole 40 mg EC Tab PO SCH (06:00)
[2018-07-14] MEDS: Insulin Lispro (humaLOG) MEDIUM Coverage SC SCH ×5 (06:43→22:40)
[2018-07-14] MEDS: Potassium Chloride 20 mEq ER Tab PO SCH (09:00)
[2018-07-14] MEDS: diltiaZEM 180 mg/24 Hours CD Cap PO SCH (09:32)
[2018-07-14] MEDS: ARMOUR THYROID 60 MG PO SCH (09:35)
[2018-07-14] MEDS ORDERED: Home Med 1 UNIT PO SCH ×2 (10:00)
[2018-07-14] MEDS ORDERED: POLYETHYLENE GLYCOL 3350 17 GM/Dose PACKET PO SCH (10:00)
--- NOTE | 2018-07-14 20:33 | HP ---
DATE OF EXAM: 07/14/2018 HISTORY OF PRESENT ILLNESS: The patient is 87 years old, was brought to emergency room because of generalized weakness, increasing shortness of breath, bilateral leg edema, so the patient was admitted on Acute Care Floor. She was found to have abnormal LFTs and further workup showed cirrhosis of liver. She had cardiomyopathy with ejection fraction of 30% to 35%. She was also in AFib, was started on Cardizem and anticoagulant, but because of her worsening coagulopathy, anticoagulate was held and she was __59____ given vitamin K. By diuresing, her liver function improved and coagulopathy improved. The patient underwent cardiac cath and was found to have non-occlusive coronary disease; however, LV dysfunction. During this time, the patient was found to be deconditioned, so transferred to TCU for rehab and closed monitoring. PAST MEDICAL HISTORY: Significant for; 1. Non-insulin dependent diabetes. 2. Hypothyroidism. 3. History of hypertension. ALLERGIES: SHE IS ALLERGIC TO ACETAMINOPHEN, HYDROMORPHONE, MORPHINE, NSAIDS. MEDICATIONS AT HOME: She is on [place] Thyroid and Januvia. SOCIAL HISTORY: Denies smoking, drinking, alcohol use. However, her was a heavy smoker. REVIEW OF SYSTEMS: Generalized weakness, difficulty walking, and shortness of breath on walking. PHYSICAL EXAMINATION: VITAL SIGNS: She is afebrile, pulse 90, and blood pressure 138/66. LUNGS: Bilateral fair airflow, decreased at bases. HEART: S1 and S1 audible. ABDOMEN: Soft, obese, nontender, no rebound, no guarding. NEUROLOGICAL: The patient is awake, alert, oriented, communicative, able to communicate. EXTREMITIES: Bilateral leg +1 edema. LABORATORY DATA: There is no new lab available today. ASSESSMENT: 1. Cardiomyopathy, had MUGA scan done yesterday with ejection fraction of 63%. 2. Atrial fibrillation. 3. Renal insufficiency. 4. Non-insulin dependent diabetes. 5. Hypothyroidism. PLAN: We will continue the patient on current medications. She is scheduled to have cardioversion NITO on 08/05/2018, encouraged physical therapy. She has been started on Eliquis. She is on glimepiride. She is on aspirin. She is on diltiazem CD. The patient does not have any active wheezing, so we will discontinue her nebulizer treatment. Continue her on Eliquis, monitor her blood sugar. Continue her on IV diuretic. We will follow her CBC and CMP in a.m. Corey Palafox MD
[2018-07-15] MEDS: Insulin Lispro (humaLOG) MEDIUM Coverage SC SCH ×4 (06:46→22:03)
[2018-07-15 06:59] LABS: BASO # 0.01 K/mm3 (0.0-2.0); BASO % 0.1 % (0.0-3.0); EOS # 0.1 (0.0-0.7); EOS % 0.7 % (1.5-5.0); HEMOGLOBIN 10.7 g/dL (12.0-16.0); LYMPH % 19.2 % (22.0-35.0); MEAN CELL VOLUME 77.6 fl (80.0-105.0); MEAN CORPUSCULAR HEMOGLOBIN 23.5 pg (25.0-35.0); MEAN CORPUSCULAR HGB CONC 30.3 g/dl (31.0-37.0); MEAN PLATELET VOLUME 9.4 fl (7.0-11.0); MONO # 1.7 (0.1-0.6); MONO % 16.2 % (1.0-6.0); RBC 4.55 10^6/uL (3.5-6.1); RED CELL DISTRIBUTION WIDTH 17.2 % (11.5-14.5); WHITE BLOOD COUNT 10.5 10^3/uL (4.5-11.0)
[2018-07-15 07:05] LABS: INR 1.82; PROTHROMBIN TIME 20.6 SECONDS (9.4-12.5)
[2018-07-15 07:33] LABS: ALBUMIN 3.3 g/dL (3.0-4.8); ALT/SGPT 116 U/L (7-56); AST/SGOT 80 U/L (14-36); BLOOD UREA NITROGEN 18 mg/dL (7-21); CALCIUM 9.2 mg/dL (8.4-10.5); GFR NON-AFRICAN AMERICAN > 60
[2018-07-15] MEDS: Potassium Chloride 20 mEq ER Tab PO SCH (08:42)
[2018-07-15] MEDS: diltiaZEM 180 mg/24 Hours CD Cap PO SCH (09:13)
[2018-07-15] MEDS: POLYETHYLENE GLYCOL 3350 17 GM/Dose PACKET PO SCH (09:13)
[2018-07-15] MEDS: ARMOUR THYROID 60 MG PO SCH (09:13)
--- NOTE | 2018-07-15 15:17 | PN ---
DATE: 07/15/2018 SUBJECTIVE: The patient is an 87-year-old, seen and examined, sitting in chair, and seems to be comfortable. No chest pain. No shortness of breath. No nausea or vomiting. No diarrhea. Eating and tolerating. Participating in therapy. PHYSICAL EXAMINATION VITAL SIGNS: She is afebrile, pulse 92, respirations 20, and blood pressure 127/55. LUNGS: Bilateral fair airflow. No rhonchi or crackle. HEART: S1 and S2 audible. ABDOMEN: Soft, obese and nontender. No rebound. No guarding. NEUROLOGIC: The patient is awake, alert, oriented and able to communicate. EXTREMITIES: Bilateral leg +1 edema. LABORATORY DATA: WBC 7.5, hemoglobin 10.3, hematocrit 35.3, and platelet 231. PT 20.6 and INR 1.82. Chemistry; sodium 133, potassium 3.9, chloride 94, CO2 of 32, BUN 18, creatinine 0.6, and blood sugar 192. Total bilirubin 2.8, AST 80 and ALT 160. ASSESSMENT: 1. Cardiomyopathy. 2. New onset atrial fibrillation. 3. History of hypertension. 4. Non-insulin dependent diabetes. 5. Hypothyroidism. PLAN: Currently the patient had been started on glimepiride. She is on diltiazem. She is on Eliquis, we will continue that. She is on Januvia, Lasix and stool softeners. We will followup the patient in a.m. Corey Palafox MD
[2018-07-15] MEDS: Albuterol-Ipratrop 3 mg / 0.5 (3 ml) UD IH PRN (19:12)
--- NOTE | 2018-07-15 20:31 | CON ---
DATE: 07/15/2018 Patient Is in Transition Care Unit. REASON FOR CONSULTATION: Atrial fibrillation with rapid ventricular rate, congestive heart failure, coronary artery disease. Patient is admitted to the floor now. Continue with care in Transition Care Unit. BRIEF CLINICAL HISTORY: This is an 87-year-old female with past medical history of type 2 diabetes, thyroid goiter, hypothyroidism, who additionally admitted to the medical floor on 06/27/2018 with atrial fibrillation with rapid ventricular rate, congestive heart failure, borderline troponin positive, acute liver injury with elevated LFTs and elevated PT/INR without any anticoagulation. Admitting INR was 3 and bilirubin was 6 and transaminase is in 400. Patient was stabilized to the medical floor and then patient subsequently had cardiac catheterization that reveals nonobstructive coronary artery disease. PAST MEDICAL HISTORY: Significant of thyroid goiter, diabetes, recent history of congestive heart failure, atrial fibrillation with rapid ventricular rate, history of thyroidectomy for goiter and history of parathyroidectomy as well. PAST SURGICAL HISTORY: Significant for parathyroidectomy and thyroidectomy for goiter. SOCIAL HISTORY: Denies any history of alcohol abuse. ALLERGIES: TO TYLENOL, HYDROMORPHONE AND MORPHINE. CURRENT MEDICATIONS: Patient is at the hospital taking glimepiride 2 mg daily, aspirin 81 mg daily, Cardizem 180 mg daily, albuterol, Eliquis 2.5 p.o. b.i.d., insulin, potassium, Lasix, MiraLax, and Zofran injection 4 mg IVP every 6 p.r.n. RECENT CARDIAC WORKUP: As follows: Patient had a cardiac catheterization on 07/12/2018 because the patient admitted with unstable angina and new onset of CHF. The cardiac catheterization revealed nonobstructive coronary artery disease limited only to distal LAD diffusely diseased like a , but no focal flow limiting stenosis. Preserved LV function, ejection fraction 55% in the range of 12. The patient was in atrial fibrillation. Possibly acute event secondary to viral infection involving multiorgan dysfunction. Now, the patient is in recovery. Admitting INR was 3, bilirubin is 6 and transaminases was 400. Patient had echocardiography done on admission, that showed significantly decreased LV function. At that time, date of the echo 07/06/2018 shows ejection fraction 30% to 35 %, mild aortic regurgitation, moderate mitral regurgitation, moderate tricuspid regurgitation. RV systolic pressure at 26, which was underestimating secondary to configuration of the TR jet. Date of the echo 07/06/2018. Patient had a cardiac catheterization done on 07/12/2018 after patient get stabilized medically. The patient later on subsequent MUGA scan done on 07/13/2018 that showed the ejection fraction 63%. PHYSICAL EXAMINATION: As follows: GENERAL: Height of the patient 5 feet 3 inches, weight of the patient 198 pounds, body mass index 34.6 kg per m2. Rest of the vitals, temperature, afebrile, heart rate 92, blood pressure 127/65. HEENT: PERRLA. Extraocular muscles intact. NECK: Supple. No carotid bruit or thyromegaly. CHEST: Clear to auscultation. HEART: S1 and S2 regular. ABDOMEN: Soft. EXTREMITIES: Clubbing and cyanosis, negative. Right femoral area where the patient had a cardiac catheterization. No hematoma noted. No femoral bruits noted. LABORATORY DATA: Blood workup as follows: WBC 10.5, hemoglobin 10.7, hematocrit 35.3, and platelet count 231. Chemistry shows sodium 133, potassium 3.9, chloride 94, CO2 of 32, anion gap of 11, BUN 8, creatinine 0.6. Total bilirubin came to 2.8, AST 80 and ALT 116. IMPRESSION: An 87-year-old female with past medical history significant for hypothyroidism, thyroid goiter, thyroidectomy and parathyroidectomy, admitted with acute multiorgan dysfunction including elevated transaminases, hyperbilirubinemia, coagulopathy, new onset of atrial fibrillation, rapid ventricular rate, congestive heart failure secondary to systolic dysfunction, ejection fraction 30% to 35%. Later on, the patient had a cardiac catheterization that revealed nonobstructive coronary artery disease dated 07/12/2018, significant improvement in left ventricular function, diffuse left anterior descending disease, no focal flow limiting stenosis. At that time, the ejection fraction was around 50%. Later on, the patient had MUGA scan done, does reveal ejection fraction improved to 63%. So, most likely this has happened sometime prior to admission the patient had some kind of viral infection that involved multiorgan dysfunction and put the patient in a stress and troponin borderline positive, acute decompensated congestive heart failure and atrial fibrillation with rapid ventricular rate. Now the plan is to continue the rehab. Continue Eliquis, continue Cardizem and if the patient still remain in atrial fibrillation, we will do the transesophageal echocardiogram cardioversion on 08/05/2018 as outpatient. In the interim, continue albuterol, Cardizem CD 180 mg, baby aspirin and continue Eliquis 2.5 p.o. b.i.d. Continue gentle Lasix. We will change later on to p.o. and also we will discontinue aspirin because patient does not have significant coronary artery disease and patient's family states that the history is significant of bleeding in the past. So, we will just continue low dose of Eliquis and follow with you. Idania Phan MD [facility] # [id number]
[2018-07-16] MEDS: Insulin Lispro (humaLOG) MEDIUM Coverage SC SCH ×4 (06:59→22:53)
[2018-07-16] MEDS: Potassium Chloride 20 mEq ER Tab PO SCH (07:55)
[2018-07-16] MEDS ORDERED: Potassium Chloride 10 mEq ER Tab PO SCH (09:01)
[2018-07-16] MEDS: diltiaZEM 180 mg/24 Hours CD Cap PO SCH (10:08)
[2018-07-16] MEDS: ARMOUR THYROID 60 MG PO SCH (10:09)
[2018-07-16] MEDS: POLYETHYLENE GLYCOL 3350 17 GM/Dose PACKET PO SCH (10:10)
--- NOTE | 2018-07-16 10:19 | PN ---
DATE: 07/16/2018 REASON FOR CONSULTATION: Followup, atrial fibrillation with rapid rate, congestive heart failure, coronary artery disease, sepsis, acute livery injury, status post cardiac catheterization, nonobstructive coronary artery disease, now the patient is in transitional care unit for the continuity of care. SUBJECTIVE: The patient denies any chest pain, shortness of breath, or any palpitation. PHYSICAL EXAMINATION: GENERAL: Not in apparent distress. VITAL SIGNS: Temperature afebrile, heart rate 84, and blood pressure 128/57. HEENT: PERRLA. Extraocular muscles are intact. NECK: Supple. No carotid bruits or thyromegaly. CHEST: Clear to auscultation. HEART: S1 and S2, regular. ABDOMEN: Soft. EXTREMITIES: Clubbing and cyanosis negative. LABORATORY DATA: Blood workup; WBC 10.5, hemoglobin 10.3, hematocrit 35.3, and platelet count 231. Chemistry shows sodium 130, potassium 3.9, chloride 94, carbon dioxide 32, anion gap of 11, BUN 18, and creatinine 0.6. IMPRESSION: An 87-year-old female with past medical history of obesity, increased body mass index of 35 kg/m2, history of hypertension, hypothyroid, goiter, status post thyroidectomy, status post parathyroidectomy, admitted with acute liver failure, elevated transaminase of 400, INR close to 3, and bilirubin 6 with atrial fibrillation with rapid ventricular rate/unstable angina. After being , underwent cardiac catheterization with nonobstructive coronary artery disease. The patient was restarted on Eliquis, low dose because of the coagulopathy, significant improvement in left ventricle after the patient subsided, most recent MUGA done day before yesterday ejection fraction 53%. Admitting ejection fraction by echo was 30% to 35%. Over the course of time, the left ventricle function improved. Cardiac catheterization revealed nonobstructive coronary artery disease and ejection fraction by cath was 50%. Further improvement in left ventricular function noted. After the sepsis and acute possible viral episode subside, liver function improved. RECOMMENDATIONS: Continue Cardizem CD 180 mg daily, continue Eliquis 2.5 p.o. b.i.d. Discontinue aspirin, continue Lasix. The patient is scheduled for NITO cardioversion on 08/05/2018 at 11 a.m. Possible discharge home in a day or two, the patient requested tonight. We will explain to the nurse taking care that the patient needs to be evaluated by Dr. Palafox for possible discharge home today or tomorrow. We will change Lasix to p.o. Her right femoral area where cardiac catheterization remains stable. H and H are also stable. No hematoma, no bruit in the femoral area noted. Thank you Dr. Palafox for providing us the opportunity in taking care of the patient, Liliana Fletcher. Idania Phan MD
--- NOTE | 2018-07-16 17:03 | PN ---
DATE: 07/16/2018 SUBJECTIVE: The patient is 87 years old, seen and examined, insisting to go home. As per daughter, she seems to be confused at times. Has bilateral leg swelling. No chest pain. No shortness of breath. PHYSICAL EXAMINATION: VITAL SIGNS: She is afebrile, pulse 68, respirations 20, and blood pressure 137/72. LUNGS: Bilateral decreased breath sounds in bases. HEART: S1 and S2 audible. ABDOMEN: Soft, nontender. No rebound. No guarding. NEUROLOGIC: The patient is awake, alert, oriented and able to communicate. EXTREMITIES: Bilateral leg +2 edema. LABORATORY DATA: Blood sugar is 217. ASSESSMENT: 1. New onset of atrial fibrillation. 2. Hypertension. 3. Non-insulin dependent diabetes. 4. Hypothyroidism. PLAN: So plan is, currently the patient is on glimepiride. She is on diltiazem. She is on Eliquis. Continue her on Januvia. She is on Lasix. She is on stool softeners, will continue on that. We will follow up the patient in a.m. and make DC plan. Corey Palafox MD
[2018-07-17] MEDS: Insulin Lispro (humaLOG) MEDIUM Coverage SC SCH ×2 (06:52→11:58)
[2018-07-17] MEDS: POLYETHYLENE GLYCOL 3350 17 GM/Dose PACKET PO SCH (09:24)
[2018-07-17] MEDS: diltiaZEM 180 mg/24 Hours CD Cap PO SCH (09:25)
[2018-07-17] MEDS: ARMOUR THYROID 60 MG PO SCH (09:26)
[2018-07-17 11:22] VITALS: BP 129/75; PULSE 90; RESP 19; TEMP 97.3; O2SAT 95
--- NOTE | 2018-07-17 19:50 | PN ---
DATE: 07/17/2018 LOCATION: The patient is in room 315, bed 1. REASON FOR CONSULTATION AND FOLLOWUP: Atrial fibrillation, rapid rate, congestive heart failure, coronary artery disease, sepsis, acute liver injury, status post cardiac catheterization, nonobstructive coronary artery disease. The patient in transitional care unit for deconditioning, physical therapy. SUBJECTIVE: The patient denies any chest pain, shortness of breath, or palpitation. The patient is lying comfortably in bed. PHYSICAL EXAMINATION: VITAL SIGNS: Blood pressure 110/75, respirations 19, pulse 90, and temperature 97.3. HEENT: Head is normocephalic. Eyes, pupils normal. Conjunctivae slightly pale. NECK: JVP low. Carotids equal. THORAX: AP diameter normal. LUNGS: Clear. CARDIOVASCULAR: S1 and S2. ABDOMEN: Soft and nontender. No organomegaly. Bowel sounds normal. EXTREMITIES: No clubbing. No cyanosis. LABORATORY DATA: WBC 10.5, hemoglobin 10.7, hematocrit 35.3, and platelets 231. Random sugar 247. Sodium 133, potassium 3.9, BUN 18, and creatinine 0.6. AST 80 and ALT 116. Total protein 6.6, albumin 3.3. DIAGNOSES: Chronic atrial fibrillation, hypertension, obesity, body mass index 35 kg/m2, hypothyroidism, goiter, status post thyroidectomy, status post parathyroidectomy, was admitted with acute liver failure with elevated transaminase to 400, INR close to 3 and bilirubin 6 with atrial fibrillation, rapid ventricular rate. The patient underwent cardiac catheterization and was found to have nonobstructive coronary artery disease. The patient was restarted on Eliquis low-dose because of coagulopathy, significant improvement in the left ventricle. Most recent MUGA showed ejection fraction of 53% and admitting ejection fraction by echocardiogram was 30% to 35%. Over the course of time, left ventricular function has improved. Cardiac catheterization revealed nonobstructive coronary artery disease and ejection fraction by catheterization was around 50%. The patient also has anemia, cardiac cath site is healing up okay and clinically cardiac status is stable. No hematoma at the cardiac catheterization site. RECOMMENDATIONS: We will continue therapy and will follow with you. Idania Alberts MD
--- NOTE | 2018-07-17 23:23 | DS ---
HISTORY OF PRESENT ILLNESS: The patient is 87 years old who was initially admitted with not feeling well, not eating as good, getting increasingly weak, short of breath. She was brought to Emergency. She was found to be in congestive heart failure. She has new onset of AFib. She had bilateral pleural effusions. She has severe passive congestion of her liver, so the patient was carefully diuresed. Her electrolytes were closely monitored. Cardiology consult by Dr. Phan was done. The patient was started on Cardizem and anticoagulant. She did well, was complaining of weakness and difficulty walking, so she was transferred to TCU for rehab and close monitoring. The patient's stay in TCU was unremarkable. She did very well in therapy and chose to go home. PHYSICAL EXAMINATION: On examination today; she is awake, alert, oriented, and communicative. VITAL SIGNS: She is afebrile, pulse 94, respiration 18, and blood pressure 117/62. LUNGS: Bilateral fair airflow. No rhonchi or crackle. HEART: S1, S2 audible. ABDOMEN: Soft, obese, and nontender. No rebound. No guarding. NEUROLOGIC: She is awake, alert, oriented, and communicative. LABORATORY DATA: Her blood sugar is 113. ASSESSMENT: 1. New onset of atrial fibrillation. 2. Congestive heart failure. 3. Bilateral pleural effusions. 4. Cirrhosis liver. 5. Noninsulin-dependent diabetes. 6. Hypothyroidism. PLAN: The patient will be discharged today. She is being discharged home on glimepiride 2 mg before breakfast and dinner, diltiazem 180 mg daily. She is on Eliquis 2.5 mg twice a day. She is on Januvia 50 mg daily, potassium 10 mEq daily, Lasix 40 mg daily, and MiraLax as needed. She will be following Dr. Phan on 07/28/2018, and she is scheduled to have NITO cardioversion done on 07/28/2018. We will follow up the patient in office on 07/28/[address] Phan. Corey Palafox MD
== END 2018-07-17 13:11 | disposition home or self-care (01) | DRG 945 ==
LOC: TRCU 19:41
PROVIDERS: ADMIT Internal Medicine; ATTEND Internal Medicine
PROC: F07Z9FZ Gait Training/Functional Ambulation Treatment using Assistive, Adaptive, Supportive or Protective Equipment (ICD-10-PCS; principal; 2018-07-15)
PROC: F07L6YZ Therapeutic Exercise Treatment of Musculoskeletal System - Lower Back / Lower Extremity using Other Equipment (ICD-10-PCS; 2018-07-15)
PROC: F08Z1FZ Dressing Techniques Treatment using Assistive, Adaptive, Supportive or Protective Equipment (ICD-10-PCS; 2018-07-15)
PROC: F08Z2ZZ Grooming/Personal Hygiene Treatment (ICD-10-PCS; 2018-07-15)
DX: R53.1 Weakness (principal); I50.20 Unspecified systolic (congestive) heart failure; I42.9 Cardiomyopathy, unspecified; I11.0 Hypertensive heart disease with heart failure; R26.2 Difficulty in walking, not elsewhere classified; I48.2 Chronic atrial fibrillation; E11.9 Type 2 diabetes mellitus without complications; E89.0 Postprocedural hypothyroidism; I25.10 Atherosclerotic heart disease of native coronary artery without angina pectoris; K74.60 Unspecified cirrhosis of liver; N28.9 Disorder of kidney and ureter, unspecified; D64.9 Anemia, unspecified; R79.1 Abnormal coagulation profile; E66.9 Obesity, unspecified; Z68.35 Body mass index [BMI] 35.0-35.9, adult; Z79.01 Long term (current) use of anticoagulants; Z79.84 Long term (current) use of oral hypoglycemic drugs